=== PATIENT | female | born 1950 | race Caucasian/White ===

== ENCOUNTER 2017-01-10 15:42 | Inpatient (IN) | payer OTHER, MEDICAID ==
[~2017-01-10] VITALS: Ht 160 cm; Wt 114.5 kg
[2017-01-10] VITALS (9 sets, daily range): BP systolic 86–112; BP diastolic 53–87; PULSE 86–118; RESP 14–25; O2SAT 90–95
[~2017-01-10 15:42] MED LIST: ASPI-973 PO; ISOS30TA4 PO; LEVO50TA6 PO; LIP40 PO; LOSA50TA37 PO; METF1000 PO; METO50TA3 PO; NITR0.4T SL; SERT50TA9 PO; SPIR25TA3 PO
--- NOTE | 2017-01-10 16:23 | ED.REPORT ---
HPI-Chest Pain 40 and Over Date of Service Jan 10, 2017 ED Provider: Doc,Ed MD Kayy King is a pleasant 66 yo woman with history of Paroxysmal atrial tachycardia, congestive heart failure, COPD oxygen dependent 2 L, IDC, diabetes , hypothyroidism, presents to the [facility] emergency department after being called by triage nurse who is monitoring her AICD saying that she has been in a irregular rhythm for the last couple of days. Patient states she has noticed that her heartbeat has been irregular but has not caused her any discomfort. She says she has been in atrial fibrillation before but does not recall ever being on any blood thinners. She is not currently on any blood thinners. She states she has had abdominal pain for the last week, constant 8 out of 10 aching, no nausea/vomiting/diarrhea/anorexia, nothing makes it better or worse. She still has a gallbladder. She denies any increase in weight, says that her right lower extremity appears to be a little more swollen over the last couple of days compared to the left, denies any shortness of breath, lightheadedness, dizziness, headache, changes in vision, chest pain, recent illness, increase in her baseline shortness of breath or oxygen needs, no orthopnea or dysuria. No reported fever, chills, cold sweats Nursing Notes Stated Complaint: STOMACH PAIN,IRREGULAR HEARTBEAT Chief Complaint: Dysrhythmia/Cardiac Nursing Notes Reviewed: Yes Allergies: Coded Allergies: lisinopril (Verified Adverse Reaction, Intermediate, cough, 10/27/15) Scheduled Aspirin (Aspirin) 81 Mg Tablet 81 MG PO DAILY Atorvastatin (Lipitor) 40 Mg Tablet 40 MG PO HS Ipratropium Hamlin (Atrovent HFA) 200 Puff/12.9 Gm Inhaler 2 PUFFS INHALATION QID Isosorbide MN ER (Isosorbide MN ER) 30 Mg Tab.er.24h 30 MG PO QAM Levothyroxine (Levothyroxine) 50 Mcg Tablet 50 MCG PO DAILY Losartan Potassium (Losartan Potassium) 50 Mg Tablet 50 MG PO QAM Metformin (Glucophage) 1,000 Mg Tablet 1,000 MG PO BIDWM Metoprolol Tartrate (Metoprolol Tartrate) 50 Mg Tablet 50 MG PO BID Sertraline HCl (Sertraline) 50 Mg Tablet 50 MG PO DAILY Spironolactone (Spironolactone) 25 Mg Tablet 12.5 MG PO DAILY Scheduled PRN Albuterol Neb Soln (Albuterol Neb Soln) 0.63 Mg/3 Ml Vial.neb 3 ML INHALATION QID PRN PRN For Shortness of Breath Albuterol Sulfate (Ventolin HFA Inhaler) 200 Puff/18 Gm Inhaler 2 PUFFS INHALATION QID PRN PRN For Shortness of Breath Nitroglycerin SL (Nitrostat) 0.4 Mg Tab.subl 0.4 MG SL Q5MIN PRN PRN For Chest Pain General Time Seen by MD: 16:22 Chief Complaint Other (Arrythmia. ) Sudden in Onset?: Yes Similar Sx Previous: No Past Medical History Past Medical History Notes: Echo 05/18/14: EF 55-60%, rheumatic mitral valve with moderate stenosis (gradient 3.8mmHg) (has had EF as low as 30%) Past Medical History Idiopathic dilated cardiomyopathy History of paroxysmal atrial tachycardia History of congestive heart failure Hypothyroid Diabetes Past Surgical History Appendectomy Tonsillectomy Back surgery Cardiac cath with stent place in 2015 Family History Father- Unk Mother - CHF Arthritis, passed at 67. Smoking History Former Smoker (quit 2010) Social History Alcohol Use: "Social" Drug Use: THC (daily 1 bowl . ) Occupation Retired nurses aid. Review of Systems Complete sys rev & neg: except as marked. Physical Exam General: Sitting up in bed, no apparent distress HEENT: Normocephalic, atraumatic, EOMI grossly, poor dentition, mucous membranes moist, conjunctiva pink, neck is supple. No JVD. Cardiovascular: Irregularly irregular tachycardic, no clicks murmurs rubs, peripheral pulses 2/4 equal bilaterally Pulmonary: Bibasilar rales, expiratory wheeze to upper lung wagner. Abdominal: Soft to palpation, Conner sign positive, no rebound, no ash corley' s or ted sign. Extremities: RLE is mildly larger than L. Non tender. No cords. No rashes. Neuro: Neurologically grossly intact, strength is equal bilaterally upper and lower extremities. MSK: Able to move extremities on their own volition, strength 5 out of 5 equal bilaterally to upper and lower extremities. Initial Vital Signs Vital Signs (First) Date Time Temp Pulse Resp B/P Pulse Ox O2 Delivery O2 Flow Rate FiO2 01/10/17 15:59 36.2 107 24 92 4/12/17 16:16 86/69 Nasal Cannula 2 Initial VS: Reviewed Interpretation & Diagnostics Lab Results Interpretation Result Diagram: 01/10/17 1621 01/10/17 1621 Test 01/10/17 16:21 White Blood Count 11.5th/mm3 (3.8-10.1) Red Blood Count 4.63mil/mm3 (3.90-5.20) Hemoglobin 15.3g/dL (12.0-15.6) Hematocrit 46.9% (35.0-46.0) Mean Corpuscular Volume 101.3fL (81-100) Mean Corpuscular Hemoglobin 33.0pg (27.0-35.0) Mean Corpuscular Hemoglobin Concent 32.6% (32.0-37.0) Red Cell Distribution Width 14.5% (12.3-15.4) Platelet Count 215bil/L (150-400) Neutrophils (%) (Auto) 67.7% (40-74) Lymphocytes (%) (Auto) 25.1% (14-46) Monocytes (%) (Auto) 5.4% (4-12) Eosinophils (%) (Auto) 1.1% (0-5) Basophils (%) (Auto) 0.4% (0-3) D-Dimer 1.51mg/L FEU (<0.50) Sodium Level 136mEq/L (134-144) Potassium Level 4.8mEq/L (3.5-5.2) Chloride Level 98mEq/L (97-108) Carbon Dioxide Level 22mmol/L (18-29) Blood Urea Nitrogen 19mg/dL (8-27) Creatinine 1.04mg/dL (0.57-1.00) Estimat Glomerular Filtration Rate 76mL/min (>59) Glucose Level 108mg/dL (60-99) Calcium Level 8.9mg/dL (8.5-10.1) Magnesium Level 1.4mg/dL (1.6-2.6) Total Bilirubin 0.6mg/dL (0.0-1.2) Aspartate Amino Transf (AST/SGOT) 26U/L (0-50) Alanine Aminotransferase (ALT/SGPT) 38U/L (0-32) Alkaline Phosphatase 49U/L (25-165) Pro-B-Type Natriuretic Peptide 4350pg/mL (0-287) Total Protein 7.3g/dL (6.4-8.4) Albumin 4.0g/dL (3.4-5.0) Thyroid Stimulating Hormone (TSH) 4.490uIU/mL (0.450-4.500) ECG Interpretation ECG Interpretation: Irregularly irregular rhythm, rate 110 QTC 482, "Atrial fibrillation, RBBB and LPFB" X-Ray Chest Interpretation Chest Xray Interpretation: IMPRESSION: Suspect mild congestive heart failure. Dictated by: Travon John M.D. on 01/10/2017 at 16:37 US Focused Biliary IMPRESSION: 1. Cholelithiasis with wall thickening. Imaging findings are felt to be retail field representative of cholecystitis. Dictated by: Marisel Castillo M.D. on 01/10/2017 at 19:55 Re-Eval/Medical Decision Med Decision/Clinical Course Patient was evaluated for arrhythmia, and new onset abdominal pain. Evaluation of her heart showed her to be in atrial fibrillation with rapid ventricular rate , she was given a diltiazem dose IV, and started on diltiazem drip which brought her to rate in the upper 90s to low 100s. She remained in atrial fibrillation throughout her time in the emergency department. In regards to her abdominal pain findings were suspicious for cholecystitis, ultrasound showed thickened gallbladder wall 4.7 mm, and a nonobstructing gallstone. Patient was admitted for the above-mentioned conditions, surgery was consulted and said they would evaluate the patient in the morning. Consultation #1: Referral / Consult Name: Giorgi López MD Consulted With: Surgeon Pin Drafter Operator: Will see patient Consultation #2: Referral / Consult Name: Douglas Martinez MD Consulted With: Hospitalist Pin Drafter Operator: Will see patient, Accepts admit Counseled Regarding: Diagnosis, Lab results, Need for admission Discharge & Departure Primary Impression: Atrial fibrillation Atrial fibrillation type: paroxysmal Qualified Code: I48.0 - Paroxysmal atrial fibrillation Additional Impression: Cholecystitis Disposition: ADMITTED TO HOSPITAL Discharge Condition All VS Reviewed: Yes Condition: Stable Referrals: Poli Marvin MD (PCP) Attending Statement Seen and examined with Dr Mast on 01/10. agree with above. copies to: Poli Padron MD, Donald L MD Jan 10, 2017 16:22 Beni Mast DO Jan 10, 2017 16:41
[2017-01-10 16:28] LABS: BASOPHILS % (AUTO) 0.4 % (0-3); EOSINOPHILS % (AUTO) 1.1 % (0-5); MONOCYTES % (AUTO) 5.4 % (4-12); Mean Corpuscular Volume 101.3 fL (81-100); NEUTROPHILS % (AUTO) 67.7 % (40-74); Platelet Count 215 bil/L (150-400)
--- NOTE | 2017-01-10 16:46 | DRSVH ---
PROCEDURE: X-RAY CHEST ONE VIEW, PORTABLE ([id number]) INDICATIONS: Chest pain. TECHNIQUE: One view of the chest was acquired. COMPARISON: [facility], CR, XR CHEST 1VW (PORTABLE), 07/07/2015, 6:06. FINDINGS: Surgical changes and devices: There is a cardiac pacemaker/defibrillator. Lungs and pleura: There is common pulmonary vascularity. There are small pleural effusions. No pneumo thorax. Mediastinum: Mediastinal contours appear normal. Heart size is mildly increased. Bones and chest wall: No suspicious bony lesions. Overlying soft tissues appear unremarkable. IMPRESSION: Suspect mild congestive heart failure. Dictated by: Travon John M.D. on 01/10/2017 at 16:37 Approved by: Travon John M.D. on 01/10/2017 at 16:44
[2017-01-10] MEDS ORDERED: 0.9% Sodium Chloride 500 ML IV ONE (16:55)
[2017-01-10] MEDS ORDERED: Diltiazem 5 mg/mL 5 mL Inj IVPUSH ONE (16:55)
[2017-01-10] MEDS ORDERED: Diltiazem Inj 125 MG in 0.9% Sodium Chloride 100 ML, Pharmacy To Mix 1 EA IV SCH (16:55)
[2017-01-10 17:00] LABS: Magnesium 1.4 mg/dL (1.6-2.6)
[2017-01-10 17:01] LABS: TROPONIN T < 0.010 ug/L (0.0-0.011)
--- NOTE | 2017-01-10 19:59 | DRSVH ---
PROCEDURE: US ABDOMEN ([id number]) INDICATIONS: RUQ pain x1wk. Yeni? TECHNIQUE: Real-time scanning was performed of the abdominal and retroperitoneal organs, with image documentatio n. COMPARISON: None. FINDINGS: Liver: Liver is normal in size and demonstrates mild steatosis. Gallbladder: Oval areas of increased echogenicity are present within the gallbladder. The wall is thi ckened measuring 4.7 mm. No pericholecystic fluid is present. Biliary ducts: Intrahepatic bile ducts are non-dilated. Extrahepatic bile duct caliber measures 5.6 mm. Normal is 6-7 mm or less in diameter, or 10 mm or less post-cholecystectomy. Pancreas: Visualized portions of the pancreas are sonographically normal. Spleen: Spleen is normal in size and homogeneous in echotexture. Kidneys: Kidneys are normal in size and echotexture. Right kidney measures 11.6 cm long; left kidne y measures 10.1 cm long. No hydronephrosis or nephrolithiasis. No solid masses. Aorta: Visualized aorta is normal in caliber at less than 3 cm. Iliacs: Proximal common iliac arteries are normal in caliber at less than 2.5 cm. IVC: Intrahepatic inferior vena cava is patent. Miscellaneous: No free abdominal fluid. IMPRESSION: 1. Cholelithiasis with wall thickening. Imaging findings are felt to be authorization representative of cholecystit is. Dictated by: Marisel Castillo M.D. on 01/10/2017 at 19:55 Approved by: Marisel Castillo M.D. on 01/10/2017 at 19:57
[2017-01-10] MEDS ORDERED: ALBU0.63 INHALATION (20:46)
[2017-01-10] MEDS ORDERED: ATRINH INHALATION (20:46)
[2017-01-10] MEDS ORDERED: ALBU18HF INHALATION (20:46)
[2017-01-10] MEDS ORDERED: Alum-Mag Hydrox-Simeth 30 mL Suspension PO PRN (20:55)
[2017-01-10] MEDS ORDERED: Ondansetron 2 mg/mL 2 mL Inj IVPUSH PRN (20:55)
[2017-01-10] MEDS ORDERED: Polyethylene Glycol (PEG) 17 Gm Powder PO PRN (20:55)
[2017-01-10] MEDS ORDERED: Albuterol 2.5 mg/3 mL Inhalation Solution NEB PRN (22:55)
--- NOTE | 2017-01-10 23:00 | NUR ---
Admit Pt from the ED. On 3L of oxygen, Sp02 at 89%. Mild SOB on exertion. Pt complaining on abdominal pain. Admission complete. Pt able to be a SBA for safety to and from the [facility].
[2017-01-10] MEDS: Albuterol-Ipratropium 3 mL Inhalation Solution NEB PRN (23:23)
[2017-01-11] VITALS (11 sets, daily range): BP systolic 89–130; BP diastolic 63–96; PULSE 92–136; RESP 17–34; O2SAT 88–100
[2017-01-11] MEDS: Heparin 5,000 Unit/mL Inj SUBQ SCH ×3 (00:21→16:52)
[2017-01-11] MEDS ORDERED: Glucose 40% Oral Gel 15 Gm Tube PO PRN (00:30)
--- NOTE | 2017-01-11 00:35 | PCM.HPMED ---
Subjective Date of Service Jan 10, 2017 Primary Provider: Admitting Physician: Abhinav Florez MD Primary Care Physician: David Servin MD Attending Physician: Abhinav Florez MD Admit Status: From the Emergency Department Chief Complaint: Irregular heartbeat and abdominal pain History of Present Illness: 66 y/o female with a history of coronary artery disease s/p LAD stent in 2008, congestive heart failure (EF 55-60% on 12/17/15), atrial arrhythmias s/p AICD, diabetes and COPD on 2L chronic home oxygen who presented to the ED with the complaint of abdominal pain and an irregular heart beat. She states that she had recently been setup to monitor her AICD at home when the nurse evaluating her AICD advised the patient to go to the ED for an irregular rhythm. The patient states that her heart beat is always fast and that she is asymptomatic and has not been aware of her irregular rhythm nor has it caused her any chest discomfort. Patient reports arrhythmias in the past but denies being in atrial fibrillation and is not currently anticoagulated. Her main concern has been severe, 8/10 abdominal pain localized to the RUQ for the past week. She states that her pain is constant, not related to eating and radiates to her right side. She denies aggravating or alleviating factors, decreased appetite, fever, chills, nausea, vomiting, diarrhea or constipation. Of note, the patient states that she is followed by Dr. Tamez and reports increased right lower extremity swelling in the last few days. She denies orthopnea, chest pain or palpitations , dizziness, or headaches. She reports shortness of breath which is chronic and at baseline. In the ED: she was afebrile, hypotensive (BP 86/69), tachycardic (HR 107) and tachypneic (RR 24) with oxygen sats of 92% on 2L nasal cannula. Initial troponin was negative x1, pro BNP 4350, TSH 4.490 and D-dimer 1.51. ECG showing an irregularly irregular rhythm with a rate of 110 and RBBB. CXR suggestive for mild congestive heart failure. Abdominal ultrasound revealed cholelithiasis with wall thickening consistent with cholecystitis. Additional labs: WBC 11.5, H/H 15.3/46.9, plts 215 Na+ 136, K+ 4.8, Cl- 98, bicarb 22 BUN 19, Cr 1.04 Calcium 8.9 Mg 1.4 Glucose 108 total bili 0.6 AST/ALT 26/38 alk phos 49, She received 2g of IV ceftriaxone, 1L bolus of LR as well as 1L boluses of NS x2 and was started on a diltiazem drip. Review of Systems: A comprehensive review of systems was conducted with the patient and found to be negative except as above in the History of Present Illness. Allergies Coded Allergies: lisinopril (Verified Adverse Reaction, Intermediate, cough, 10/27/15) Home Medications Aspirin 81 MG PO DAILY Atorvastatin 40 MG PO DAILY Isosorbide MN ER 30 MG PO DAILY Levothyroxine 50 MCG PO DAILY Losartan Potassium 50 MG PO DAILY Metformin 1,000 MG PO BID Metoprolol Tartrate 50 MG PO BID Sertraline HCl 50 MG PO DAILY Spironolactone 12.5 MG PO DAILY Nitroglycerin SL 0.4 MG SL Q5MIN PRN For Chest Pain PMH History of systolic congestive heart failure due to 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 History of paroxysmal atrial tachycardia vs supraventricular tachycardia s/p ablation. CAD s/p LAD stent in 2008 COPD oxygen dependent 2 L Hypothyroidism Diabetes mellitus, type 2 Morbid obesity, BMI >40.0 Depression w/hx of two suicidal attempts Surgical History Appendectomy Tonsillectomy Back surgery Cardiac cath with stent place in 2015 Carpal tunnel surgery Family History Father- Unknown Mother - CHF Arthritis, at 67. Social History Occupation: Retired nurses aid. Hx Alcohol Use: Yes (OCCASIONALLY) Hx Substance Use: Yes (MARIJUANA DAILY) Hx Tobacco Use: Yes Smoking Status: Former Smoker (quit 2010) Living Arrangement: with Family Exam Vital Signs Vital Sign - Last Date Time Temp Pulse Resp B/P Pulse Ox O2 Delivery O2 Flow Rate FiO2 01/10/17 20:38 108 24 105/79 92 Nasal Cannula 2 01/10/17 18:44 36.8 Exam Gen: Obese female sitting upright in bed, appears uncomfortable but in no acute distress. Appropriately interactive c/o abdominal pain. HEENT: Normocephalic, atraumatic. PERRLA, no scleral icterus, oropharynx appears normal with moist mucosa. Neck: Nontender, no JVD, bruits or lymphadenopathy appreciated. Cardiac: Tachycardic with Irregularly irregular rhythm and no murmurs, rubs or gallops appreciated. Chest/Lungs: Symmetric chest rise, equal air entry bilaterally and normal respiratory effort, diminished lung sounds but grossly clear to auscultation bilaterally. Abd: soft, obese, nondistended, diffusely tender to palpation jerri RUQ, no masses or organomegaly appreciated. Ext: Warm, distal pulses equal/intact bilaterally, no cyanosis or edema. Mild, non-pitting edema to the ankle bilaterally R>L Skin: Normal temperature, turgor, and texture; no rash, or ulcerations. Neuro: CN II-XII grossly intact, no focal motor/sensory deficits.Normal muscle strength, tone, and bulk. No known gait impairment. Psych: Normal mood and affect. Alert and oriented to person, place, and time. Lab and Diagnostics Labs Laboratory Tests Test 01/10/17 16:21 White Blood Count 11.5th/mm3 (3.8-10.1) Red Blood Count 4.63mil/mm3 (3.90-5.20) Hemoglobin 15.3g/dL (12.0-15.6) Hematocrit 46.9% (35.0-46.0) Mean Corpuscular Volume 101.3fL (81-100) Mean Corpuscular Hemoglobin 33.0pg (27.0-35.0) Mean Corpuscular Hemoglobin Concent 32.6% (32.0-37.0) Red Cell Distribution Width 14.5% (12.3-15.4) Platelet Count 215bil/L (150-400) Neutrophils (%) (Auto) 67.7% (40-74) Lymphocytes (%) (Auto) 25.1% (14-46) Monocytes (%) (Auto) 5.4% (4-12) Eosinophils (%) (Auto) 1.1% (0-5) Basophils (%) (Auto) 0.4% (0-3) D-Dimer 1.51mg/L FEU (<0.50) Sodium Level 136mEq/L (134-144) Potassium Level 4.8mEq/L (3.5-5.2) Chloride Level 98mEq/L (97-108) Carbon Dioxide Level 22mmol/L (18-29) Blood Urea Nitrogen 19mg/dL (8-27) Creatinine 1.04mg/dL (0.57-1.00) Estimat Glomerular Filtration Rate 76mL/min (>59) Glucose Level 108mg/dL (60-99) Calcium Level 8.9mg/dL (8.5-10.1) Magnesium Level 1.4mg/dL (1.6-2.6) Total Bilirubin 0.6mg/dL (0.0-1.2) Aspartate Amino Transf (AST/SGOT) 26U/L (0-50) Alanine Aminotransferase (ALT/SGPT) 38U/L (0-32) Alkaline Phosphatase 49U/L (25-165) Troponin T < 0.010ug/L (0.0-0.011) Pro-B-Type Natriuretic Peptide 4350pg/mL (0-287) Total Protein 7.3g/dL (6.4-8.4) Albumin 4.0g/dL (3.4-5.0) Thyroid Stimulating Hormone (TSH) 4.490uIU/mL (0.450-4.500) Result Diagram: 01/10/17 1621 01/10/17 1621 X-Rays, CTs and MRIs X-RAY CHEST ONE VIEW, PORTABLE IMPRESSION: Suspect mild congestive heart failure. Dictated by: Travon John M.D. on 01/10/2017 at 16:37 Approved by: Travon John M.D. on 01/10/2017 at 16:44 US ABDOMEN IMPRESSION: 1. Cholelithiasis with wall thickening. Imaging findings are felt to be sales representative supervisor of cholecystitis. Dictated by: Marisel Castillo M.D. on 01/10/2017 at 19:55 Approved by: Marisel Castillo M.D. on 01/10/2017 at 19:57 Assessment & Plan 66 y/o female with a hx of CAD s/p LAD stent in 2008, CHF (most recent Echo on w/EF of 55-60%, severely dilated atria), atrial arrhythmias s/p AICD, diabetes and COPD on 2L chronic home O2 who presented to the ED with the complaint of abdominal pain and an irregular heart beat. Admitted for further management and evaluation of Afib w/RVR and probable cholecystitis. 1. Atrial fibrillation w/RVR, poa. Active. -hx of paroxysmal atrial tachycardia s/p ablation and CAD s/p LAD stent in 2008. Pt denies being in Afib before and not anticoagulated. -sent to ED after irregular rhythm noted on AICD monitoring. -ECG showing Afib w/rate of 110. -troponin negative x1, will trend -continue diltiazem drip, home aspirin/statin -hold home isosorbide, losartan, metoprolol, spironolactone. -Echo ordered 2. Probable acute cholecystitis, poa. Active. -patient c/o severe RUQ for past week and Abd US with findings consistent with cholecystitis. -WBC 11.5, total bili 0.6, AST/ALT 26/38, alk phos 49 -received 1L of LR, 2L of NS and 2g of IV ceftriaxone in the ED. -general surgery consulted from ED, will see in the morning -NPO after midnight -continue IV ceftriaxone -CMP in the morning 3. 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 Ongoing. -most recent ECHO (12/17/15) showing an EF 55-60%, severely enlarged left atrium -proBNP 4350 on admission and CXR suggestive for mild congestive heart failure -consider consult to Cardiology, pending Echo results, pt states she is followed by Dr. Tamez -Echo, ordered. 4. Diabetes mellitus, type 2 (chronic), poa. Presumed stable. -serum glucose on admission 108 -HbA1c pending -held Metformin -low dose correctional insulin ordered 5. COPD (chronic), poa. Stable -oxygen dependent, 2L home O2. Currently at baseline requirement. -does appear in acute exacerbation -continue supplemental oxygen -duonebs q4h prn, albuterol q4 prn 6. Hypothyroidism (chronic), poa. Presumed stable -continue home levothyroxine 7. Hx of depression (chronic), poa. Presumed stable. -reportedly two prior suicide attempts in the past -continue home sertraline CODE STATUS: FULL FEN: Heart healthy/consistent carb; NPO after midnight GI Prophylaxis: not indicated DVT Prophylaxis: Sub-q Heparin, 5,000units Q8h PRN: Acetaminophen-fever/headache/mild/moderate pain Antiemetics, as needed Bowel regimen, as needed. Disposition: Patient admitted under inpatient status with expected length of stay > 2 midnights for severity of present symptoms, complexities of treatment plan and risk for adverse event. Pain Evaluation: Adequate Pain Control GI Prophylaxis: Not indicated VTE Prophylaxis Indicated: Meets Criteria for Anticoag Therapy VTE Prophylaxis: Sub-Q Heparin (Unfractionated) Resuscitation Status: CPR: Attempt Resuscitation Attending Statement The patient was seen and examined together with Dr. Singer on 01/10 and I agree with the history, exam and plan as outlined in the note above. Viviana Singer DO Jan 10, 2017 20:53 Abhinav Florez MD Jan 11, 2017 02:13
[2017-01-11 04:53] LABS: BASOPHILS % (AUTO) 0.6 % (0-3); EOSINOPHILS % (AUTO) 1.5 % (0-5); MONOCYTES % (AUTO) 7.8 % (4-12); Mean Corpuscular Hemoglobin 33.2 pg (27.0-35.0); Mean Corpuscular Volume 101.4 fL (81-100); NEUTROPHILS % (AUTO) 56.6 % (40-74); Platelet Count 175 bil/L (150-400)
[2017-01-11] MEDS: Albuterol-Ipratropium 3 mL Inhalation Solution NEB PRN ×2 (05:06→09:18)
[2017-01-11 05:32] LABS: TROPONIN T 0.01 ug/L (0.0-0.011)
[2017-01-11] MEDS: Insulin LISPRO 300 Unit/3 mL Inj SUBQ SCH ×4 (08:00→20:03)
[2017-01-11] MEDS: HYDROmorphone 1 mg/mL Inj IVPUSH PRN ×3 (08:09→19:24)
--- NOTE | 2017-01-11 08:21 | PCM.CONSUR ---
Subjective Date of Service: Jan 11, 2017 History of Present Illness 66 y/o female with a history of coronary artery disease s/p LAD stent in 2008, congestive heart failure (EF 55-60% on 12/17/15), atrial arrhythmias s/p AICD, diabetes and COPD on 2L chronic home oxygen who presented to the ED with the complaint of abdominal pain and an irregular heart beat. Her main concern has been severe, 8/10 abdominal pain localized to the RUQ for the past week. Patient had RUQ pain for one week which subsided and again returned on 07/17. She denies nausea, vomiting, diarrhea, constipation. She states that her RUQ pain was not associated with PO intake.The pain seems constant and is aggravated by movement and palpation. She remains afebrile and normal white count. Abdominal ultrasound revealed cholelithiasis with wall thickening consistent with cholecystitis. Reason for Consultation RUQ pain and US showing cholelithiasis. Allergy Allergies: Coded Allergies: lisinopril (Verified Adverse Reaction, Intermediate, cough, 10/27/15) Medications Hypertension Medication: Yes Home Meds Incl Beta Blockers: Yes Albuterol Neb Soln (Albuterol Neb Soln) 0.63 Mg/3 Ml Vial.neb 3 ML INHALATION QID PRN PRN For Shortness of Breath (Reported) Last Taken: Unknown Dose on 01/10/17 Albuterol Sulfate (Ventolin HFA Inhaler ) 200 Puff/18 Gm Inhaler 2 PUFFS INHALATION QID PRN PRN For Shortness of Breath (Reported) Last Taken: Unknown Dose on 01/10/17 Aspirin (Aspirin) 81 Mg Tablet 81 MG PO DAILY (Reported) Last Taken: Unknown Dose on 01/10/17 0800 Atorvastatin (Lipitor) 40 Mg Tablet 40 MG PO HS (Reported) Last Taken: Unknown Dose on 01/09/17 Cephalexin (Cephalexin) 500 Mg Capsule 500 MG PO QID Prescribed by: BAUTISTA CARTER MD Furosemide (Furosemide) 20 Mg Tab 20 MG PO DAILY Prescribed by: BAUTISTA CARTER MD Ipratropium [place] (Atrovent HFA) 200 Puff/12.9 Gm Inhaler 2 PUFFS INHALATION QID (Reported) Last Taken: Unknown Dose on 01/10/17 Isosorbide MN ER (Isosorbide MN ER) 30 Mg Tab.er.24h 30 MG PO QAM (Reported) Last Taken: Unknown Dose on 01/10/17 08 Levothyroxine (Levothyroxine) 50 Mcg Tablet 50 MCG PO DAILY (Reported) Last Taken: Unknown Dose on 01/10/17 08 Losartan Potassium (Losartan Potassium) 50 Mg Tablet 50 MG PO QAM (Reported) Last Taken: Unknown Dose on 01/10/17 08 Metformin (Glucophage) 1,000 Mg Tablet 1,000 MG PO BIDWM (Reported) Last Taken: Unknown Dose on 01/10/17799 Metoprolol Tartrate (Metoprolol Tartrate) 50 Mg Tablet 50 MG PO BID (Reported) Last Taken: Unknown Dose on 01/10/17799 Nitroglycerin SL (Nitrostat) 0.4 Mg Tab.subl 0.4 MG SL Q5MIN PRN PRN For Chest Pain (Reported) Last Taken: Unknown Dose on Unknown Date & Time Sertraline HCl (Sertraline) 50 Mg Tablet 50 MG PO DAILY Prescribed by: SAVANNAH ARMANDO DO Last Taken: Unknown Dose on 01/10/17799 Spironolactone (Spironolactone) 25 Mg Tablet 12.5 MG PO DAILY (Reported) Last Taken: Unknown Dose on 01/10/17 0800 Past Surgical History Surgeries: Yes (PACEMAKER, APPENDECTOMY, TONSILLECTOMY, PARTIAL L3/L4 FUSION) Patient/Family Past Surgical: Denies:: Anesthesia Reactions, Blood Transfuse Reaction, Blood Transfusions Social History Occupation: Retired nurses aid. Hx Alcohol Use: Yes (OCCASIONALLY) Hx Substance Use: Yes (MARIJUANA DAILY) Hx Tobacco Use: Yes PMH HEENT History History of ENT Problems?: No HEENT History: Denies:: Cataracts Dysphagia Glaucoma Sinus Problem Cardiovascular History History of Heart Problems?: Yes Cardiovascular History: Positive for:: Cardiac Surgery (AICD pacemaker, PCI of LAD) Chest Pain Congestive Heart Failure Edema (LE) Heart Murmur Hypertension Irregular Heartbeat (S/P ablation in 2008) Pacemaker (AICD) Denies:: Thrombophlebitis Respiratory History of Respiratory Problem: Yes Respiratory History: Positive for:: Dyspnea (With activity (worsen since last few months)) Denies:: Asthma COPD Chest Surgery Emphysema Hemoptysis Pneumonia Tuberculosis Neurological History Hx Neurologic Problems?: Yes Neurological History: Denies:: Alzheimer's Disease CVA Dementia Dizziness Headaches Parkinson's Disease Seizures Gastrointestinal History HX of GI Problems?: Yes Gastrointestinal History: Positive for:: Heartburn (Realated to aspirin) Denies:: Diverticulitis Gastrointestinal Bleeding Hepatitis Hiatal Hernia Genitourinary History Hx of Gu Problems?: Yes Genitourinary History: Positive for: Urinary Tract Infection (A few times during the last few years) Denies: HX of Hemodialysis Kidney Stones Female/Male History Reproductive History Female: Denies: Currently ? Endometriosis Pelvic Inflammatory DX Problems with Breasts? Musculoskeletal History Hx Musculoskeletal Problems?: Yes Musculoskeletal History: Positive for:: Back Injury (Back L3-L4 partial fusion ) Denies:: Joint Replacement Musculoskeletal Trauma Psycho Social History Hx of Psycho/Social Problems?: Yes Psycho Social History: Positive for:: Anxiety Hx Depression Suicide Attempt ( OD) Denies:: Bipolar Disorder Other History Hx Any Other Health Problems?: Yes Other History: Positive for:: Cancer (Cervical cancer in the 80-90s) Hospitalization Thyroid Disease Denies:: Endocrine Disease Diabetes: YesBedside Blood Glucose: 108 Social History Hx Alcohol Use: Yes (OCCASIONALLY)Hx Substance Use: Yes (MARIJUANA DAILY)Hx Tobacco Use: Yes Smoking Status: Former Smoker (quit 2010) Living Arrangement: with Family Family History PMH Family Member: Father (CHF) Mother (CHF, diabetes) PMH Family Diagnosis: Cardiac Diabetes Objective Exam Objective comprehensive ROS is negative except those listed in the H&P. Vital Signs & I/O Vital Sign- Last 8 Hours Date Time Temp Pulse Resp B/P Pulse Ox O2 Delivery O2 Flow Rate FiO2 01/11/17 05:19 98 01/11/17 05:06 117 22 94 Nasal Cannula 4.00 01/11/17 03:22 92 34 100/63 100 Nasal Cannula 4.00 01/11/17 00:11 36.4 102 20 112/94 93 Nasal Cannula 4.00 Intake and Output- Last 8 Hour 01/11/17 Cumulative From/Thru 07:00 01/10/17 15:59 - 01/11/17 06:22 Intake Total 300 ml 800 ml Output Total 900 ml 900 ml Balance -600 ml -100 ml Intake Oral 300 ml 300 ml IV Total 500 ml Output Urine Total 900 ml 900 ml Lab & Micro Results Laboratory Tests Test 01/10/17 16:21 01/10/17 22:15 4/13/17 04:34 White Blood Count 11.5th/mm3 (3.8-10.1) 10.9th/mm3 (3.8-10.1) Red Blood Count 4.63mil/mm3 (3.90-5.20) 4.19mil/mm3 (3.90-5.20) Hemoglobin 15.3g/dL (12.0-15.6) 13.9g/dL (12.0-15.6) Hematocrit 46.9% (35.0-46.0) 42.5% (35.0-46.0) Mean Corpuscular Volume 101.3fL (81-100) 101.4fL (81-100) Mean Corpuscular Hemoglobin 33.0pg (27.0-35.0) 33.2pg (27.0-35.0) Mean Corpuscular Hemoglobin Concent 32.6% (32.0-37.0) 32.7% (32.0-37.0) Red Cell Distribution Width 14.5% (12.3-15.4) 14.2% (12.3-15.4) Platelet Count 215bil/L (150-400) 175bil/L (150-400) Neutrophils (%) (Auto) 67.7% (40-74) 56.6% (40-74) Lymphocytes (%) (Auto) 25.1% (14-46) 33.3% (14-46) Monocytes (%) (Auto) 5.4% (4-12) 7.8% (4-12) Eosinophils (%) (Auto) 1.1% (0-5) 1.5% (0-5) Basophils (%) (Auto) 0.4% (0-3) 0.6% (0-3) D-Dimer 1.51mg/L FEU (<0.50) Sodium Level 136mEq/L (134-144) 139mEq/L (134-144) Potassium Level 4.8mEq/L (3.5-5.2) 4.5mEq/L (3.5-5.2) Chloride Level 98mEq/L (97-108) 104mEq/L (97-108) Carbon Dioxide Level 22mmol/L (18-29) 20mmol/L (18-29) Blood Urea Nitrogen 19mg/dL (8-27) 17mg/dL (8-27) Creatinine 1.04mg/dL (0.57-1.00) 0.85mg/dL (0.57-1.00) Estimat Glomerular Filtration Rate 76mL/min (>59) 96mL/min (>59) Glucose Level 108mg/dL (60-99) 93mg/dL (60-99) Calcium Level 8.9mg/dL (8.5-10.1) 8.6mg/dL (8.5-10.1) Magnesium Level 1.4mg/dL (1.6-2.6) Total Bilirubin 0.6mg/dL (0.0-1.2) 0.6mg/dL (0.0-1.2) Aspartate Amino Transf (AST/SGOT) 26U/L (0-50) 19U/L (0-50) Alanine Aminotransferase (ALT/SGPT) 38U/L (0-32) 29U/L (0-32) Alkaline Phosphatase 49U/L (25-165) 43U/L (25-165) Troponin T < 0.010ug/L (0.0-0.011) 0.010ug/L (0.0-0.011) 0.010ug/L (0.0-0.011) Pro-B-Type Natriuretic Peptide 4350pg/mL (0-287) Total Protein 7.3g/dL (6.4-8.4) 6.2g/dL (6.4-8.4) Albumin 4.0g/dL (3.4-5.0) 3.6g/dL (3.4-5.0) Thyroid Stimulating Hormone (TSH) 4.490uIU/mL (0.450-4.500) Result Diagram: 01/11/1743301/11/17433 Review of Systems: Constitutional: Negative, except as otherwise mentioned in the history above. Ophthalmologic: Negative, except as otherwise mentioned in the history above. Cardiovascular: Negative, except as otherwise mentioned in the history above. Respiratory: Negative, except as otherwise mentioned in the history above. Gastrointestinal: Negative, except as otherwise mentioned in the history above. Genitourinary: Negative, except as otherwise mentioned in the history above. Musculoskeletal: Negative, except as otherwise mentioned in the history above. Neurological: Negative, except as otherwise mentioned in the history above. Psychiatric: Negative, except as otherwise mentioned in the history above. Hematologic/Lymphatic: Negative, except as otherwise mentioned in the history above. Allergic/Immunologic: Negative, except as otherwise mentioned in the history above. H&P Surgical Exam Exam Additional Information Gen: Obese female lying in bed, appears uncomfortable but in no acute distress. Appropriately interactive c/o abdominal pain. HEENT: Normocephalic, atraumatic. PERRLA, no scleral icterus, oropharynx appears normal with moist mucosa. Neck: Nontender, no JVD, bruits or lymphadenopathy appreciated. Cardiac: Tachycardic with Irregularly irregular rhythm and no murmurs, rubs or gallops appreciated. Chest/Lungs: Symmetric chest rise, Abd: soft, obese, nondistended, diffusely tender to palpation RUQ, no masses or organomegaly appreciated. Ext: Warm, distal pulses equal/intact bilaterally, no cyanosis or edema. Mild, non-pitting edema to the ankle bilaterally R>L Skin: Normal temperature, turgor, and texture; no rash, or ulcerations. Neuro: CN II-XII grossly intact, no focal motor/sensory deficits.Normal muscle strength, tone, and bulk. No known gait impairment. Psych: Normal mood and affect. Alert and oriented to person, place, and time. Assessment & Plan Assessment Cholelithiasis on US and RUQ pain. VTE Prophylaxis: Sub-Q Heparin (Unfractionated) Plan: Continue fluids, pain management, and antibiotics per medicine team. She is not a surgical candidate due to BMI of 62.5. Recommend transfer to a tertiary facility for HIDA and surgical intervention if necessary. Surgery team will sign off. Resuscitation Status: CPR: Attempt Resuscitation Attending Statement: I personally interviewed and examined the patient. Discussed case with hospitalist and anesthesiologist re: her BMI. ORA HALL DO Jan 11, 2017 08:08 Wilfred Smith MD Jan 14, 2017 16:51
--- NOTE | 2017-01-11 08:26 | PCM.PNMED ---
Subjective Date of Service Jan 11, 2017 Subjective she is having ongoing right upper quadrant pain. The pain does not radiate, nor is a colicky. No nausea or emesis. She is hungry. The pain increases with palpation. She also has palpitations. No dyspnea or chest pain. No recent diarrhea. No overnight events. Exam Vital Signs Vital Sign - Last Date Time Temp Pulse Resp B/P Pulse Ox O2 Delivery O2 Flow Rate FiO2 01/11/17 05:19 98 01/11/17 05:06 22 94 Nasal Cannula 4.00 01/11/17 03:22 100/63 01/11/17 00:11 36.4 Intake and Output 01/10/17 01/10/17 01/11/17 Cumulative From/Thru 15:00 23:00 07:00 01/10/17 15:59 - 01/11/17 06:22 Intake Total 500 ml 300 ml 800 ml Output Total 900 ml 900 ml Balance 500 ml -600 ml -100 ml Intake Oral 300 ml 300 ml IV Total 500 ml 500 ml Output Urine Total 900 ml 900 ml Exam Alert and oriented 3, no distress. Fluent speech Anicteric sclera. Lungs are clear with normal rate and effort Heart is regular without murmur gallop or rub Abdomen soft nontender, flat. There is right upper quadrant tenderness without guarding or rebound. Extremities are free of edema. Skin is free of rash or lesions. IVs and Medications Medications Reviewed: Medications were reviewed in detail Lab and Diagnostics Result Diagram: 01/11/17 0434 01/11/17 0434 X-Rays, CTs and MRIs X-RAY CHEST ONE VIEW, PORTABLE IMPRESSION: Suspect mild congestive heart failure. Dictated by: Travon John M.D. on 01/10/2017 at 16:37 Approved by: Travon John M.D. on 01/10/2017 at 16:44 US ABDOMEN IMPRESSION: 1. Cholelithiasis with wall thickening. Imaging findings are felt to be community representative of cholecystitis. Dictated by: Marisel Castillo M.D. on 01/10/2017 at 19:55 Approved by: Marisel Castillo M.D. on 01/10/2017 at 19:57 Assessment & Plan 66 y/o female with a hx of CAD s/p LAD stent in 2008, CHF (most recent Echo on w/EF of 55-60%, severely dilated atria), atrial arrhythmias s/p AICD, diabetes and COPD on 2L chronic home O2 who presented to the ED with the complaint of abdominal pain and an irregular heart beat. Admitted for further management and evaluation of Afib w/RVR and probable cholecystitis. 1. Atrial fibrillation w/RVR, poa. Active. -hx of paroxysmal atrial tachycardia s/p ablation and CAD s/p LAD stent in 2008. Pt denies being in Afib before and not anticoagulated. -sent to ED after irregular rhythm noted on AICD monitoring. -ECG showing Afib w/rate of 110. -troponin negative x1, will trend -continue diltiazem drip, home aspirin/statin -hold home isosorbide, losartan, metoprolol, spironolactone. -Echo ordered Plan is to maintain her on a diltiazem drip, pending transfer to [facility] for a probable urgent cholecystectomy. 2. Probable acute cholecystitis, poa. Active. -patient c/o severe RUQ for past week and Abd US with findings consistent with cholecystitis. -WBC 11.5, total bili 0.6, AST/ALT 26/38, alk phos 49 -received 1L of LR, 2L of NS and 2g of IV ceftriaxone in the ED. -general surgery consulted from ED, will see in the morning -NPO after midnight -continue IV ceftriaxone -CMP in the morning Our surgeons reviewed the case and given her bariatric parameters she is not a candidate for cholecystectomy at this institution. We will work towards a transfer. 3. 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 Ongoing. -most recent ECHO (12/17/15) showing an EF 55-60%, severely enlarged left atrium -proBNP 4350 on admission and CXR suggestive for mild congestive heart failure -consider consult to Cardiology, pending Echo results, pt states she is followed by Dr. Tamez -Echo, ordered. This appears to be clinically stable. 4. Diabetes mellitus, type 2 (chronic), poa. Presumed stable. -serum glucose on admission 108 -HbA1c pending -held Metformin -low dose correctional insulin ordered Plan is as above and without change 5. COPD (chronic), poa. Stable -oxygen dependent, 2L home O2. Currently at baseline requirement. -does appear in acute exacerbation -continue supplemental oxygen -duonebs q4h prn, albuterol q4 prn 6. Hypothyroidism (chronic), poa. Presumed stable -continue home levothyroxine 7. Hx of depression (chronic), poa. Presumed stable. -reportedly two prior suicide attempts in the past -continue home sertraline CODE STATUS: FULL FEN: Heart healthy/consistent carb; NPO after midnight GI Prophylaxis: not indicated DVT Prophylaxis: Sub-q Heparin, 5,000units Q8h PRN: Acetaminophen-fever/headache/mild/moderate pain Antiemetics, as needed Bowel regimen, as needed. Disposition: Inpatient status, pending transfer likely to [facility]. GI Prophylaxis: Not indicated VTE Prophylaxis: Sub-Q Heparin (Unfractionated) Resuscitation Status: CPR: Attempt Resuscitation Virgil Lawrence MD Jan 11, 2017 08:26
[2017-01-11] MEDS ORDERED: Magnesium Sulf 2 Gm/50mL Water 2 GM in IV Premix 1 EACH IV ONE (08:30)
--- NOTE | 2017-01-11 08:50 | DRSVH ---
PROCEDURE: CT ANGIO CHEST PULMONARY EMBOLISM ([id number]) INDICATIONS: Tachycardia, Increased O2 demand, Elevated Ddimer TECHNIQUE: After the administration of intravenous contrast, 2 mm thick sections acquired from the pulmonary api caprice to the posterior costophrenic angles. 3-dimensional maximum intensity projection (MIP) coronal a nd sagittal reformats were then acquired through the thorax. For radiation dose reduction, the follo wing was used: automated exposure control, adjustment of mA and/or kV according to patient size. COMPARISON: None. FINDINGS: Image quality: There is mild motion artifact limiting evaluation of distal branches. Pulmonary arteries: Pulmonary arteries demonstrate no intraluminal filling defects to suggest centra l pulmonary embolism. Evaluation of distal subsegmental branches is limited due to motion artifact. There is enlargement of the pulmonary arteries, with the main pulmonary artery measuring up to 3.8 c m suggesting pulmonary arterial hypertension. Lungs and pleura: There are small bilateral pleural effusions with associated mild compressive atele ctasis. There are indistinct ground glass opacities with multiple thickening compatible with mild pu lmonary edema. There are centrilobular emphysematous changes bilaterally. There is an irregular per ihilar nodule in the right lower lobe measuring up to 1.6 cm with spiculated margins. The trachea an d central airways are patent. Mediastinum: Heart size is normal, without pericardial effusion. There is a left chest wall AICD wi th the lead extending into the right ventricle. There is suggestion of a coronary stent in the left anterior descending coronary artery. There multiple enlarged mediastinal lymph nodes including a rep resentative node approximately 1.3 cm in short axis. Thoracic aorta is normal in caliber and enhance ment. Esophagus is normal in caliber, without hiatal hernia. Bones and chest wall: No suspicious bony lesions. There are old healed posterior left rib fractures . Thyroid gland is partially visualized. No axillary or supraclavicular adenopathy. Abdomen: Visualized upper abdomen demonstrates mild reflux of contrast into the hepatic veins sugges ting elevated right heart filling pressures. IMPRESSION: 1. No evidence of central pulmonary embolism. There is enlargement of the pulmonary arteries sugges ting pulmonary arterial hypertension. 2. Spiculated perihilar right lower lobe nodule is suspicious for a neoplasm although the differenti al also includes atypical infection. Recommend correlation clinically and further evaluation with a CT or short term followup CT in 4-6 weeks. 3. Mediastinal lymphadenopathy is nonspecific but may reflect metastatic disease. Recommend further evaluation with PET CT or short term followup in 4-6 weeks if there is clinical suspicion for an inf ectious or inflammatory process. 4. Cardiomegaly with small pleural effusions and mild pulmonary edema compatible with congestive hea rt failure. 5. Centrilobular emphysematous changes. Dictated by: David Flores M.D. on 01/11/2017 at 8:33 Approved by: David Flores M.D. on 01/11/2017 at 8:49
[2017-01-11] MEDS ORDERED: Furosemide 10 mg/mL 2 mL Inj IVPUSH ONE (10:45)
[2017-01-11] MEDS: Piperacillin-Tazo 3.375 Gm Inj 3.375 GM in Dextrose 5% Minibag Plus 50 ML IV SCH ×2 (11:13→19:14)
--- NOTE | 2017-01-11 11:48 | NUR ---
Social Work: Screen Data/Assessment: Per EMR review, pt is a 66 year old female admitted for AFIB with RVR, Cholocystitis. Pt is [place] Blind/Disabled. PCP is David Servin MD. NOK is souleymane Andrew. Advanced directives not complete- information provided to pt. Readmit score not entered at this time. Pt discussed in am rounds. Pt is not a surgical candidate at [facility] due to her high BMI. Pt is being transferred to [facility] for a higher level of care. MD requested RESIDENTIAL WORKER contact [facility] Transfer [facility] ([phone]) to verify pt's insurance. RESIDENTIAL WORKER provided pt's insurance info to [facility]. They are still reviewing and will call MD back with final decision. Pt lives in [place] and is I at baseline. Pt uses 2L o2 at baseline. Pt is currently on 6L o2. Plan: Anticipate pt to be transferred to [facility] once a bed is available. RESIDENTIAL WORKER to assist as requested by clinical team. LISANDRA Ferraro
--- NOTE | 2017-01-11 14:51 | DRSVH ---
PROCEDURE: X-RAY CHEST ONE VIEW, PORTABLE ([id number]) INDICATIONS: dyspnea TECHNIQUE: One view of the chest was acquired. COMPARISON: [facility], CR, XR CHEST 1VW (PORTABLE), 01/10/2017, 16:06. FINDINGS: Surgical changes and devices: There is a cardiac pacemaker/defibrillator. Lungs and pleura: There is increased pulmonary vascularity. There are small pleural effusions. No pne umothorax. Mediastinum: Mediastinal contours appear normal. Heart size is mildly increased. Bones and chest wall: No suspicious bony lesions. Overlying soft tissues appear unremarkable. IMPRESSION: Mild CHF similar to prior examination. Dictated by: Jaime Solano RRA Interpreted: Judy Chavira MD on 01/11/2017 at 14:50 Transcribed by: ANA on 01/11/2017 at 14:50 Approved by: Judy Chavira MD, PhD on 01/11/2017 at 16:45
[2017-01-11] MEDS: Diltiazem Inj 125 MG in 0.9% Sodium Chloride 100 ML, Pharmacy To Mix 1 EA IV SCH (17:56)
--- NOTE | 2017-01-11 17:56 | NUR ---
Cardizem Drip Noted that her heart rate had been trending up slightly during the day to 110s and 120s. Increased her Cardizem drip to 10 mg/hour at 1756. Care continues.
--- NOTE | 2017-01-11 19:38 | NUR ---
Pain/Possible Transfer/Communication 0800 - Spoke with Dr. Lawrence about her not being given pain medication all night long even though the warehouse shift supervisor nurse had requested it multiple times of the night resident. He ordered 1 mg of Dilaudid IV. Gave it to her for abdominal pain of 8/10. She had been asking to eat, but he said she needed to remain NPO as she would likely need to transfer to [facility] for surgery as it could not be provided here. Gave her the Dilaudid and passed the diet info along to her. The Dilaudid took away her pain upon reassessment. 09 - Informed Dr. Lawrence in morning multi-disciplinary rounds that her oxygen had to be increased to 6L via oxymask and that she was still sating 88% even after a nebulizer. Her lungs sounded fairly clear upon auscultation except for some crackles in her bases. Dr. Lawrence ordered a stat chest x-ray which showed some CHF. IV Lasix was ordered which once given improved her saturation even though by that point she had needed to be increased to 10L. 1105 - Noted that Zosyn had been ordered, but that is was incompatible with her Cardizem drip and she only had one IV. Spoke to the Pharmacist Cm Crews who said the Zosyn could be given over 15 minutes while the Cardizem was temporarily stopped. He put the order in and the Zosyn was given. Her rhythm did not change while she was off the Cardizem drip. 1405 - Spoke with Dr. Lawrence about the transfer, but unfortunately [facility] did not have any beds so she would need to stay for the night and be NPO except for sips of water. He spoke to her about this. Care continues.
--- NOTE | 2017-01-11 20:20 | DRSVH ---
[facility] [address] [place] [address] Echocardiogram Report Name: FERNY DEAN JStudy Date: 01/11/2017 Height: 63 in Hospital Exam Location: [facility] Weight: 353 lb Gender: Other BSA: 2.5 m2 : 1950 Age: 66 yrs BP: 100/63 mmHg Reason For Study: Atrial fibrillation RVR Ordering Physician: HOSPITALIST [facility] Performed By: Kian Garcia Referring Physician: KUMAR KRUSE Interpretation Summary Left ventricular wall thickness is mildly increased. The left ventricle is mildly dilated. The ejection fraction is estimated to be 50-55%. The right ventricle is mild to moderately dilated. Right ventricular systolic function is moderately reduced. There is a pacemaker lead in the right ventricle. Rheumatic mitral stenosis. The mitral valve mean gradient is 8 mmHg. There is mild mitral regurgitation. The aortic valve is moderately calcified. There is no aortic valve stenosis. There is moderate aortic regurgitation. The right ventricular systolic pressure is estimated at 53 mmHg assuming a right atrial pressure of 15 mm Hg. There is no pericardial effusion. The left atrium is severely dilated. The patient was in atrial fibrillation with heart rates between 94-134 bpm during the exam. Compared to the previous study on 12/17/2015, the atrial fibrillation is new, LV function is not as brisk, RV systolic function is reduced, right sided pressures are higher and the degree of mitral stenosis has progressed. Procedure: A two-dimensional transthoracic echocardiogram with color flow and Doppler was performed. The study quality was technically adequate. The patient was in atrial fibrillation with heart rates between 94-134 bpm during the exam. Left Ventricle: Left ventricular wall thickness is mildly increased. The left ventricle is mildly dilated. The ejection fraction is estimated to be 50 -55%. Right Ventricle: The right ventricle is mild to moderately dilated. There is a pacemaker lead in the right ventricle. Right ventricular systolic function is moderately reduced. Atria: The left atrium is severely dilated. The right atrium is moderately dilated. There is no Doppler evidence for an atrial septal defect. Mitral Valve: Rheumatic mitral stenosis. The mitral valve mean gradient is 8 mmHg. There is mild mitral regurgitation. Aortic Valve: The aortic valve is not well visualized. The aortic valve is moderately calcified. The peak aortic velocity is 1.8 m/sec. The aortic valve mean gradient is 8 mmHg. There is no aortic valve stenosis. There is moderate aortic regurgitation. Tricuspid Valve: The tricuspid valve is not well visualized, but is grossly normal. There is mild tricuspid regurgitation. The right ventricular systolic pressure is estimated at 53 mmHg assuming a right atrial pressure of 15 mm Hg. Pulmonic Valve: The pulmonic valve is not well seen, but is grossly normal. There is no pulmonic valvular regurgitation. Great Vessels: The aortic root is normal size. The ascending aorta is mildly enlarged. The pulmonary artery is normal size. The IVC is dilated (diameter is greater than 2.1 cm) and it collapses less than 50% with a sniff. This suggests a high right atrial pressure of 15 mm Hg. Pericardium/ Pleura There is no pericardial effusion. There is no pleural effusion. MMode/2D Measurements & Calculations LVIDd: 5.3 cm RA long axis LVOT diam LVIDs: 4.6 cm LA A2 area: 33.2 cm FS: 14.1 % LA A4 area: 38.1 cm RA area Ao root diam EPSS: 0.88 cm LA length (vol): 7.2 cm IVSd: 1.1 cm LA vol: 149.1 ml : 27.6 cm asc Aorta LVPWd: 1.1 cm LA vol index RA vol: 96.6 mlDiam: 3.6 cm RA : 39.3 mm2 IVC diam: 3.4 cm LV mc. diameter/BSA LV sys. diameter/BSA RVD1 (basal) RVD2 (mid) (cm/m^2): 2.2 (cm/m^2): 1.9 : 3.4 cm TAPSE: 1.0 cm Doppler Measurements & Calculations Ao V2 max MV E max robbin Med Peak E' Robbin TR max robbin : 182.6 cm/sec : 157.9 cm/sec : 309.0 cm/sec Ao max PG E/E' med: 30.0 TR max PG : 13.9 mmHg MVA(VTI): 1.3 cm2 Lat Peak E' Robbin : 38.2 mmHg Ao mean PG PA V2 max E/E' lat: 23.1 : 73.4 cm/sec LVOT Max Robbin E/e' average PA mean PG : 95.1 cm/sec : 0.94 mmHg SARITA(I,D): 2.3 cm sev ratio: 0.54 AI P1/2t : 477.2 msec AI dec slope : 259.5 cm/s2c MV V2 mean MV P1/2t max robbin Ao V2 mean LV V1 max PG : 134.0 cm/sec : 158.1 cm/sec : 127.5 cm/sec MV mean PG Ao V2 VTI: 25.4 cm LV V1 VTI SARITA(V,D): 2.2 cm2 : 13.7 cm MV V2 VTI: 45.4 cm MV dec time : 0.46 sec PA V2 mean SARITA indexed to BSA : 44.6 cm/sec (cm^2/m^2): 0.92 PA pr(Accel) : 27.1 mmHg Reading Physician:08:19 PM
--- NOTE | 2017-01-11 23:35 | NUR ---
O2/PAIN/HR Pt has been comfortable since 1 mg Dilaudid was given @ 1924. Pt is currently on 10L Oxy-mask sating low 's. Pt currently NPO status awaiting her transfer to [place] in the AM. Pt on dilt gtt @ 10mg/hr, HR currently in the 90's. Uneventful night, vitals stable, no other issues noted at this time.
[2017-01-12] VITALS (13 sets, daily range): BP systolic 94–122; BP diastolic 70–99; PULSE 97–121; RESP 14–24; O2SAT 87–92
[2017-01-12] MEDS: Piperacillin-Tazo 3.375 Gm Inj 3.375 GM in Dextrose 5% Minibag Plus 50 ML IV SCH ×4 (00:26→23:59)
[2017-01-12] MEDS: Heparin 5,000 Unit/mL Inj SUBQ SCH ×4 (00:27→23:59)
--- NOTE | 2017-01-12 01:44 | NUR ---
EMESIS Pt had an episode of emesis around 0120, dark green/brown in color and liquid. Pt's HR went in to the 150's and SPO2 in the low 70's. Pt complained of a headache prior to episode. Pt is stable now with HR 90-100, SPO2 low 90's, dilt gtt increased to 15mg/hr and O2 remains @ 10L oxy-mask. No other issues noted @ this time.
--- NOTE | 2017-01-12 04:55 | ABG ---
DateTimeAnalyzed 04:52:00 -_ pH ____7.273 - 7.350 7.450 pCO2 ___59.4__ -mmHg 35.0 45.0 pO2 ___80.9__ -mmHg 69.0 116 HCO3- ___26.6__ -mmol/L 22.0 26.0 ABE ___-1.1__ -mmol/L -2.0 2.0 tHb ___14.1__ -g/dL O2Hb ___93.2__ -% COHb ____1.3__ -% MetHb ____0.9__ -% sO2 ___95.3__ -% FIO2 ___21.0__ -% Drawn By MD - Oxygen Device 2 __CANNULA - Date/Time Notified____ 04:55:00 -_ Liter_Flow ___30.0__ -L/min Oxygen Device 1 HIGH FLOW - Notified By MD - Notified Whom DR FUIMANO - B 758 -mmHg tO2 ___18.5__ -Vol% OrderingPhysicianInitials mf - Virgil test _Positive -
--- NOTE | 2017-01-12 05:22 | NUR ---
HIGH FLOW Pt de-sated to mid 70's on 10L oxy-mask, pt stayed at low 80's on 15L oxy-mask. Pt initially put on high flow 30L @ 80% sating 93% then bumped down to 25L @ 45% sating 89%. Addendum: 01/12/17 at 0636 by ERICKA CABRALES RN sating 83-84% on 25L @45% high flow
[2017-01-12] MEDS: Diltiazem Inj 125 MG in 0.9% Sodium Chloride 100 ML, Pharmacy To Mix 1 EA IV SCH ×2 (06:06→12:47)
[2017-01-12] MEDS: Insulin LISPRO 300 Unit/3 mL Inj SUBQ SCH ×4 (08:00→20:45)
--- NOTE | 2017-01-12 10:27 | PCM.PNMED ---
Subjective Date of Service Jan 12, 2017 Subjective She is feeling poorly today with headache and vomiting which she attributes to the Dilaudid. Her abdominal pain almost resolved. She was hungry yesterday. She is also hungry today. No chest pain, palpitations or dyspnea. No difficulty with diarrhea or dysuria. No overnight events other than general discomfort. Exam Vital Signs Vital Sign - Last Date Time Temp Pulse Resp B/P Pulse Ox O2 Delivery O2 Flow Rate FiO2 01/12/17 09:00 36.7 109 20 104/70 89 HI FLOW 55%/25 LPM 25.00 55 Intake and Output 01/11/17 01/11/17 01/12/17 Cumulative From/Thru 15:00 23:00 07:00 01/10/17 15:59 - 01/12/17 06:03 Intake Total 1279 ml 400 ml 2479 ml Output Total 1000 ml 900 ml 2800 ml Balance 279 ml -500 ml -321 ml Intake Oral 700 ml 400 ml 1400 ml IV Total 579 ml 1079 ml Output Urine Total 1000 ml 900 ml 2800 ml Exam Alert and oriented 3, no distress. Fluent speech Anicteric sclera. Lungs are clear with normal rate and effort Heart is regular without murmur gallop or rub Abdomen soft nontender, flat. She has no right upper quadrant tenderness to palpation today. This is an improvement. Extremities are free of edema. Skin is free of rash or lesions. IVs and Medications Medications Reviewed: Medications were reviewed in detail Lab and Diagnostics Result Diagram: 01/11/17 0434 01/11/17 0434 X-Rays, CTs and MRIs X-RAY CHEST ONE VIEW, PORTABLE IMPRESSION: Suspect mild congestive heart failure. Dictated by: Travon John M.D. on 01/10/2017 at 16:37 Approved by: Travon John M.D. on 01/10/2017 at 16:44 US ABDOMEN IMPRESSION: 1. Cholelithiasis with wall thickening. Imaging findings are felt to be credit representative of cholecystitis. Dictated by: Marisel Castillo M.D. on 01/10/2017 at 19:55 Approved by: Marisel Castillo M.D. on 01/10/2017 at 19:57 Assessment & Plan 66 y/o female with a hx of CAD s/p LAD stent in 2008, CHF (most recent Echo on w/EF of 55-60%, severely dilated atria), atrial arrhythmias s/p AICD, diabetes and COPD on 2L chronic home O2 who presented to the ED with the complaint of abdominal pain and an irregular heart beat. Admitted for further management and evaluation of Afib w/RVR and probable cholecystitis. #. Atrial fibrillation w/RVR, poa. Active. -hx of paroxysmal atrial tachycardia s/p ablation and CAD s/p LAD stent in 2008. Pt denies being in Afib before and not anticoagulated. -sent to ED after irregular rhythm noted on AICD monitoring. -ECG showing Afib w/rate of 110. -troponin negative x1, will trend -continue diltiazem drip, home aspirin/statin -hold home isosorbide, losartan, metoprolol, spironolactone. -Echo ordered and pending Plan is to maintain her on a diltiazem drip, transfer yesterday did not happen due to bed availability. At this point we will continue to rate control with diltiazem #. Probable acute cholecystitis, poa. Active. -patient c/o severe RUQ for past week and Abd US with findings consistent with cholecystitis. -WBC 11.5, total bili 0.6, AST/ALT 26/38, alk phos 49 -received 1L of LR, 2L of NS and 2g of IV ceftriaxone in the ED. -general surgery consulted from ED, will see in the morning -NPO after midnight -continue IV ceftriaxone -CMP in the morning Our surgeons reviewed the case and given her bariatric parameters she is not a candidate for cholecystectomy at this institution. We will work towards a transfer. Clinically she seems to be improved with regards to abdominal pain. We will repeat her blood tests and try a full liquid breakfast. We will follow clinically. #. Acute on chronic systolic heart failure idiopathic dilated vs ischemic cardiomyopathy s/p AICD, poa. Ongoing. -most recent ECHO (12/17/15) showing an EF 55-60%, severely enlarged left atrium -proBNP 4350 on admission and CXR suggestive for mild congestive heart failure -consider consult to Cardiology, pending Echo results, pt states she is followed by Dr. Tamez -Echo, ordered. And pending She appears to have acute on chronic congestive heart failure with hypoxia today. We will begin diuresis and use supplemental oxygen as necessary. #. Headache and nausea which she believes are adverse effects to Dilaudid. We will stop Dilaudid and try morphine instead. #. Diabetes mellitus, type 2 (chronic), poa. Presumed stable. -serum glucose on admission 108 -HbA1c pending -held Metformin -low dose correctional insulin ordered No change to current plan. 5. COPD (chronic), poa. Possibly worse. We will use medications as outlined below wall we diuresis her. -oxygen dependent, 2L home O2. Currently at baseline requirement. -does appear in acute exacerbation -continue supplemental oxygen -duonebs q4h prn, albuterol q4 prn 6. Hypothyroidism (chronic), poa. Presumed stable -continue home levothyroxine 7. Hx of depression (chronic), poa. Presumed stable. -reportedly two prior suicide attempts in the past -continue home sertraline CODE STATUS: FULL FEN: Heart healthy/consistent carb; NPO after midnight GI Prophylaxis: not indicated DVT Prophylaxis: Sub-q Heparin, 5,000units Q8h PRN: Acetaminophen-fever/headache/mild/moderate pain Antiemetics, as needed Bowel regimen, as needed. Disposition: Inpatient status, pending transfer likely to [facility]. Pain Evaluation: Pain not Controlled GI Prophylaxis: Not indicated VTE Prophylaxis: Sub-Q Heparin (Unfractionated) Resuscitation Status: CPR: Attempt Resuscitation Virgil Lawrence MD Jan 12, 2017 10:27
[2017-01-12 10:55] LABS: Mean Corpuscular Hemoglobin 32.9 pg (27.0-35.0); Mean Corpuscular Volume 102.5 fL (81-100)
[2017-01-12] MEDS: Albuterol-Ipratropium 3 mL Inhalation Solution NEB PRN ×2 (11:24→19:57)
[2017-01-12] MEDS ORDERED: Furosemide 10 mg/mL 4 mL Inj IVPUSH ONE (15:50)
--- NOTE | 2017-01-12 18:05 | NUR ---
Pain/Resp Patient a/o x 3, c/o headache, resolved with Tylenol. Patient denies nausea or upset stomach, started on liq diet sherif well. O2 HFNC @ 25 L and 55%, sat 83-92%. Tele A fib 90-120's Dilt gtt @ 15 mg/hr. VSS. Patient up to bsc with sba-1 person assist sherif fair. Will cont poc.
[2017-01-13] VITALS (14 sets, daily range): BP systolic 88–101; BP diastolic 49–81; PULSE 79–110; RESP 14–23; O2SAT 88–95
--- NOTE | 2017-01-13 01:36 | NUR ---
HEADACHE Pt c/o a headache, 650mg Tylenol given with good results. Pt stated that she felt much better than the previous night. Pt was upgraded from NPO status to soft foods due to not transferring to [place] for surgery. Pt's blood sugars were 139, no insulin given. Pt is on high flow 25L @ 55% sating low 90's. Pt resting well, no other issues noted @ this time.
[2017-01-13] MEDS: Albuterol-Ipratropium 3 mL Inhalation Solution NEB PRN (05:18)
--- NOTE | 2017-01-13 06:24 | NUR ---
DILT GTT Pt's dilt gtt decreased to 10mg/hr, HR 90-100's
[2017-01-13] MEDS ORDERED: Furosemide 10 mg/mL 4 mL Inj IVPUSH ONE ×2 (08:05→17:00)
[2017-01-13] MEDS: Piperacillin-Tazo 3.375 Gm Inj 3.375 GM in Dextrose 5% Minibag Plus 50 ML IV SCH ×2 (08:44→17:09)
[2017-01-13] MEDS: Heparin 5,000 Unit/mL Inj SUBQ SCH ×2 (08:46→17:10)
[2017-01-13] MEDS: Insulin LISPRO 300 Unit/3 mL Inj SUBQ SCH ×4 (08:46→22:00)
--- NOTE | 2017-01-13 10:59 | NUR ---
Social Work-Readiness for Discharge Data: EMR reviewed. Pt is on day 3 of hospitalization for AFIB with RVR, cholocystitis per H&P. Pt is not medically stable, anticipate discharge in 1-2 more days. Pt is receiving PO meds, working to advance diet from soft to regular. Pt was being considered for transfer to [place]. Pt is not going to be transferred at this time. SW spoke with pt at bedside regarding discharge plan, SW role explained. Pt resides in [place] with her niece. Pt states that [place] at base and "gets along just fine." Pt declined any home health or additional social work needs. Pt to discharge home with niece to transport via POV. No anticipated discharge needs. SW will continue to follow as needs arise. Assessment: Pt [place]. Plan: Pt to discharge home with niece to transport via POV. No anticipated discharge needs. SW will continue to follow as needs arise. Roshni Crystal, BUSINESS COMPUTERS TEACHER
[2017-01-13 11:07] LABS: Mean Corpuscular Hemoglobin 32.8 pg (27.0-35.0); Mean Corpuscular Volume 101.6 fL (81-100)
--- NOTE | 2017-01-13 11:10 | PCM.PNMED ---
Subjective Date of Service Jan 13, 2017 Subjective She has slightly less short of breath. No abdominal pain nausea or difficulty with eating. Some leg edema. No overt orthopnea. No chest pain. She has had paroxysmal A. fib her chronic A. fib since 2012. No overnight events Exam Vital Signs Vital Sign - Last Date Time Temp Pulse Resp B/P Pulse Ox O2 Delivery O2 Flow Rate FiO2 01/13/17 10:02 128 16 89 Nasal Cannula 25 55 01/13/17 03:59 37.0 101/53 Intake and Output 01/12/17 01/12/17 01/13/17 Cumulative From/Thru 15:00 23:00 07:00 01/10/17 15:59 - 01/13/17 06:22 Intake Total 1758 ml 776 ml 5013 ml Output Total 1350 ml 500 ml 4650 ml Balance 408 ml 276 ml 363 ml Intake Oral 1240 ml 476 ml 3116 ml IV Total 518 ml 300 ml 1897 ml Output Urine Total 1350 ml 500 ml 4650 ml Exam Alert and oriented 3, no distress. Fluent speech Anicteric sclera. Lungs are clear with normal rate and effort, she does however of high flow oxygen. Heart is regular without murmur gallop or rub Abdomen soft nontender, flat Extremities 1+ edema. Skin is free of rash or lesions. IVs and Medications Medications Reviewed: Medications were reviewed in detail Lab and Diagnostics Result Diagram: 01/12/17 1045 01/12/17 1045 X-Rays, CTs and MRIs X-RAY CHEST ONE VIEW, PORTABLE IMPRESSION: Suspect mild congestive heart failure. Dictated by: Travon John M.D. on 01/10/2017 at 16:37 Approved by: Trvaon John M.D. on 01/10/2017 at 16:44 US ABDOMEN IMPRESSION: 1. Cholelithiasis with wall thickening. Imaging findings are felt to be u.s. representative of cholecystitis. Dictated by: Marisel Castillo M.D. on 01/10/2017 at 19:55 Approved by: Marisel Castillo M.D. on 01/10/2017 at 19:57 Assessment & Plan 66 y/o female with a hx of CAD s/p LAD stent in 2008, CHF (most recent Echo on w/EF of 55-60%, severely dilated atria), atrial arrhythmias s/p AICD, diabetes and COPD on 2L chronic home O2 who presented to the ED with the complaint of abdominal pain and an irregular heart beat. Admitted for further management and evaluation of Afib w/RVR and probable cholecystitis. #. Chronic Atrial fibrillation w/RVR, poa. Active. -hx of paroxysmal atrial tachycardia s/p ablation and CAD s/p LAD stent in 2008. Pt denies being in Afib before and not anticoagulated. -sent to ED after irregular rhythm noted on AICD monitoring. -ECG showing Afib w/rate of 110. -troponin negative x1, will trend -continue diltiazem drip, home aspirin/statin -hold home isosorbide, losartan, metoprolol, spironolactone. -Echo ordered and pending We will try to wean diltiazem drip after starting oral metoprolol this morning. #. Probable acute cholecystitis, poa. Resolved.. -patient c/o severe RUQ for past week and Abd US with findings consistent with cholecystitis. -WBC 11.5, total bili 0.6, AST/ALT 26/38, alk phos 49 -received 1L of LR, 2L of NS and 2g of IV ceftriaxone in the ED. -general surgery consulted from ED, will see in the morning -NPO after midnight -continue IV ceftriaxone -CMP in the morning Symptoms have improved and resolved. This may represent biliary colic. We will advance to a full diet and follow closely and recheck liver functions white count today. #. Acute on chronic systolic heart failure idiopathic dilated vs ischemic cardiomyopathy s/p AICD, poa. Ongoing. -most recent ECHO (12/17/15) showing an EF 55-60%, severely enlarged left atrium -proBNP 4350 on admission and CXR suggestive for mild congestive heart failure -consider consult to Cardiology, pending Echo results, pt states she is followed by Dr. Tamez -Echo, ordered. And pending She appears to have acute on chronic congestive heart failure with hypoxia today. We will begin diuresis and use supplemental oxygen as necessary. Today we will diurese with 40 of Lasix IV every 12 hours. #. Headache and nausea which she believes are adverse effects to Dilaudid. We will stop Dilaudid and try morphine instead. This is now resolved. #. Diabetes mellitus, type 2 (chronic), poa. Remains stable. -serum glucose on admission 108 -HbA1c pending -held Metformin -low dose correctional insulin ordered No change to current plan. 5. COPD (chronic), poa. Possibly worse. We will use medications as outlined below wall we diuresis her. -oxygen dependent, 2L home O2. Currently at baseline requirement. -does appear in acute exacerbation -continue supplemental oxygen -duonebs q4h prn, albuterol q4 prn 6. Hypothyroidism (chronic), poa. Presumed stable -continue home levothyroxine 7. Hx of depression (chronic), poa. Presumed stable. -reportedly two prior suicide attempts in the past -continue home sertraline CODE STATUS: FULL FEN: Heart healthy/consistent carb; NPO after midnight GI Prophylaxis: not indicated DVT Prophylaxis: Sub-q Heparin, 5,000units Q8h PRN: Acetaminophen-fever/headache/mild/moderate pain Antiemetics, as needed Bowel regimen, as needed. Disposition: Inpatient status, pending transfer likely to [facility]. GI Prophylaxis: Not indicated VTE Prophylaxis: Sub-Q Heparin (Unfractionated) Resuscitation Status: CPR: Attempt Resuscitation Virgil Lawrence MD Jan 13, 2017 11:10
[2017-01-13] MEDS: Ipratropium 0.02% 0.5 mg/2.5 mL Inhalation Solution NEB SCH ×3 (11:30→21:30)
[2017-01-13] MEDS: Isosorbide Mononitrate 30 mg ER24 Tablet PO SCH (11:49)
--- NOTE | 2017-01-13 17:34 | NUR ---
Resp/Activity/Pain/Dilt gtt Patient a/o x 3, c/o head ache and left arm IV site pain. IV site red with 1+ edema. IV D/C'd intact and hot packs applied. Tele A fib 90-110's at rest DIlt gtt discontinued and po meds started. Tele remains A fib 90-110's at rest and 130-140's with activity. Lungs clear bilat, HFNC slowed weaned off per RTC and oxymask @ 4 L applied sat 92-94%. Patient oob amb in room steady gait, dyspnea with exertion. VSS. Will cont poc.
[2017-01-14] VITALS (7 sets, daily range): BP systolic 92–108; BP diastolic 69–70; PULSE 72–106; RESP 20; O2SAT 92–95
[2017-01-14] MEDS: Piperacillin-Tazo 3.375 Gm Inj 3.375 GM in Dextrose 5% Minibag Plus 50 ML IV SCH ×2 (00:35→07:58)
[2017-01-14] MEDS: Heparin 5,000 Unit/mL Inj SUBQ SCH ×2 (00:35→07:55)
--- NOTE | 2017-01-14 04:08 | NUR ---
P: low BP I: withheld lopressor til BP improved E: Start of shift BPs 80/40-50s. Withheld lopressor til MN when BP 108/69. AM BP stable low. Tele a fib, IVCD, rates 90-100s. Denies dyspnea at rest and when ambulating to BR. 4L oxymask sats range 89%-92%. Requesting neb tx in AM hours "I feel tight and wheezy". c/o mild WRAY which resolve and now returns. Tylenol given end of day shift but currently pt refusing additional dose.
[2017-01-14] MEDS: Albuterol-Ipratropium 3 mL Inhalation Solution NEB PRN (04:48)
[2017-01-14] MEDS: Ipratropium 0.02% 0.5 mg/2.5 mL Inhalation Solution NEB SCH ×2 (06:30→11:30)
[2017-01-14] MEDS: Isosorbide Mononitrate 30 mg ER24 Tablet PO SCH (07:52)
[2017-01-14] MEDS: Insulin LISPRO 300 Unit/3 mL Inj SUBQ SCH (07:57)
--- NOTE | 2017-01-14 11:38 | PCM.DIMED ---
Discharge Instructions Date of Service Jan 14, 2017 Dates of Hospitalization Jan 10, 2017 at 21:20 Discharge Diagnosis Discharge Diagnosis #. Chronic Atrial fibrillation with tachycardia, improved #. Biliary colic (gallbladder attack), resolved #. Acute on chronic systolic heart failure idiopathic, improved #. Left elbow cellulitis, secondary to IV site. #. Chronic respiratory failure, hypoxic with home oxygen #. Diabetes mellitus, type 2 (chronic), stable No change to current plan. 5. COPD (chronic), stable. 6. Hypothyroidism, stable 7. Depression , stable Diet Low fat, Low Sodium, Diabetic Activity Limited until seen by PCP Call your provider Fever or Chills, Shortness of breath, Chest pain Patient Instructions Dr. Servin tomorrow or Sunday. Cool compresses to left elbow as needed Oxygen 2 L around the clock Low sodium diet, daily weights. Follow-up Provider: Justyn Servin MD Follow-up with PCP in: 1 week Virgil Lawrence MD Jan 14, 2017 11:38
[2017-01-14] MEDS ORDERED: CEPH500C PO (11:40)
[2017-01-14] MEDS ORDERED: FUR20 PO (11:40)
--- NOTE | 2017-01-14 11:46 | PCM.DC.MED ---
Discharge Summary Date of Service Jan 14, 2017 Dates of Hospitalization Date of Hospital Admission Jan 10, 2017 at 21:20 Date of Discharge: Jan 14, 2017 Providers: Admitting Physician: Abhinav Florez MD Primary Care Physician: David Servin MD Attending Physician: Abhinav Florez MD Diagnosis at Time of Discharge Diagnosis at Time of Discharge #. Chronic Atrial fibrillation with tachycardia, improved #. Biliary colic (gallbladder attack), resolved #. Acute on chronic systolic heart failure idiopathic, improved #. Left elbow cellulitis, secondary to IV site. #. Chronic respiratory failure, hypoxic with home oxygen #. Diabetes mellitus, type 2 (chronic), stable No change to current plan. 5. COPD (chronic), stable. 6. Hypothyroidism, stable 7. Depression , stable Consultations Gen. surgery, Dr. Smith Procedures XRay, CTs & MRIs X-RAY CHEST ONE VIEW, PORTABLE IMPRESSION: Suspect mild congestive heart failure. Dictated by: Travon John M.D. on 01/10/2017 at 16:37 Approved by: Travon John M.D. on 01/10/2017 at 16:44 US ABDOMEN IMPRESSION: 1. Cholelithiasis with wall thickening. Imaging findings are felt to be sales representative trainee of cholecystitis. Dictated by: Marisel Castillo M.D. on 01/10/2017 at 19:55 Approved by: Marisel Castillo M.D. on 01/10/2017 at 19:57 ECG 12 Lead Atrial fibrillation, right bundle and left fascicular block Cardiac Echo Impression nterpretation Summary Left ventricular wall thickness is mildly increased. The left ventricle is mildly dilated. The ejection fraction is estimated to be 50-55%. The right ventricle is mild to moderately dilated. Right ventricular systolic function is moderately reduced. There is a pacemaker lead in the right ventricle. Rheumatic mitral stenosis. The mitral valve mean gradient is 8 mmHg. There is mild mitral regurgitation. The aortic valve is moderately calcified. There is no aortic valve stenosis. There is moderate aortic regurgitation. The right ventricular systolic pressure is estimated at 53 mmHg assuming a right atrial pressure of 15 mm Hg. There is no pericardial effusion. The left atrium is severely dilated. The patient was in atrial fibrillation with heart rates between 94-134 bpm during the exam. Compared to the previous study on 12/17/2015, the atrial fibrillation is new, LV function is not as brisk, RV systolic function is reduced, right sided pressures are higher and the degree of mitral stenosis has progressed. Invasive Procedures None Brief History 66 y/o female with a history of coronary artery disease s/p LAD stent in 2008, congestive heart failure (EF 55-60% on 12/17/15), atrial arrhythmias s/p AICD, diabetes and COPD on 2L chronic home oxygen who presented to the ED with the complaint of abdominal pain and an irregular heart beat. She states that she had recently been setup to monitor her AICD at home when the nurse evaluating her AICD advised the patient to go to the ED for an irregular rhythm. The patient states that her heart beat is always fast and that she is asymptomatic and has not been aware of her irregular rhythm nor has it caused her any chest discomfort. Patient reports arrhythmias in the past but denies being in atrial fibrillation and is not currently anticoagulated. Her main concern has been severe, 8/10 abdominal pain localized to the RUQ for the past week. She states that her pain is constant, not related to eating and radiates to her right side. She denies aggravating or alleviating factors, decreased appetite, fever, chills, nausea, vomiting, diarrhea or constipation. Of note, the patient states that she is followed by Dr. Tamez and reports increased right lower extremity swelling in the last few days. She denies orthopnea, chest pain or palpitations , dizziness, or headaches. She reports shortness of breath which is chronic and at baseline. In the ED: she was afebrile, hypotensive (BP 86/69), tachycardic (HR 107) and tachypneic (RR 24) with oxygen sats of 92% on 2L nasal cannula. Initial troponin was negative x1, pro BNP 4350, TSH 4.490 and D-dimer 1.51. ECG showing an irregularly irregular rhythm with a rate of 110 and RBBB. CXR suggestive for mild congestive heart failure. Abdominal ultrasound revealed cholelithiasis with wall thickening consistent with cholecystitis. Additional labs: WBC 11.5, H/H 15.3/46.9, plts 215 Na+ 136, K+ 4.8, Cl- 98, bicarb 22 BUN 19, Cr 1.04 Calcium 8.9 Mg 1.4 Glucose 108 total bili 0.6 AST/ALT 26/38 alk phos 49, She received 2g of IV ceftriaxone, 1L bolus of LR as well as 1L boluses of NS x2 and was started on a diltiazem drip. Hospital Course Discharge Diagnosis #. Chronic Atrial fibrillation with tachycardia, improved. The patient had fibrillation with rapid ventricular response requiring a diltiazem drip for most of the course of her hospitalization. She was initially nothing by mouth with thought that she may have cholecystitis. When she was resumed on oral metoprolol she is able to come off the diltiazem drip and this problem resolved to its baseline. #. Biliary colic (gallbladder attack), resolved. He was initially concern for cholecystitis based on abdominal pain as well as ultrasound. However her symptoms improved. Initially surgery thought she may require transfer to [facility] for surgery. This is based her bariatric weight parameters being over threshold for anesthesia at [facility]. However her symptoms completely improved and labs normalize consistent with possible biliary colic. She was however empiric antibiotics for a short time. #. Acute on chronic systolic heart failure idiopathic, improved. She became more distressed and had acute respiratory failure with hypoxia. She required high flow nasal cannula oxygen and was diuresed aggressively. Also it is improved and she was able to be placed back on her baseline oxygen. #. Left elbow cellulitis, secondary to IV site. She developed any erythema over the left arm secondary to an IV site. This is somewhat indurated but not fluctuant. This is felt to be consistent with a soft tissue skin infection on the day of discharge. This will be treated with oral antibiotics. #. Acute on chronic respiratory failure, hypoxic (with home oxygen). She was able to come back down from high flow oxygen to her baseline oxygen of 2-4 L nasal cannula at the time of discharge. #. Diabetes mellitus, type 2 (chronic), stable No change to current plan. This remained stable throughout hospitalization 5. COPD (chronic), stable. This remained stable throughout hospitalization. 6. Hypothyroidism, stable 7. Depression , stable Exam Vital Signs (Last) Date Time Temp Pulse Resp B/P Pulse Ox O2 Delivery O2 Flow Rate FiO2 01/14/17 11:42 74 20 93 Nasal Cannula 2.00 01/14/17 07:43 36.9 100/69 01/13/17 11:06 55 Exam Patient seen and examined on the day of discharge. Test 01/10/17 16:21 01/11/17 04:34 01/11/17 10:25 01/12/17 10:45 D-Dimer 1.51mg/L FEU (<0.50) Magnesium Level 1.4mg/dL (1.6-2.6) Pro-B-Type Natriuretic Peptide 4350pg/mL (0-287) Thyroid Stimulating Hormone (TSH) 4.490uIU/mL (0.450-4.500) Neutrophils (%) (Auto) 56.6% (40-74) Lymphocytes (%) (Auto) 33.3% (14-46) Monocytes (%) (Auto) 7.8% (4-12) Eosinophils (%) (Auto) 1.5% (0-5) Basophils (%) (Auto) 0.6% (0-3) Hemoglobin A1c 6.3% (4.8-5.6) Troponin T < 0.010ug/L (0.0-0.011) Lipase 17U/L (13-60) Test 01/13/17 11:04 White Blood Count 9.2th/mm3 (3.8-10.1) Red Blood Count 4.30mil/mm3 (3.90-5.20) Hemoglobin 14.1g/dL (12.0-15.6) Hematocrit 43.7% (35.0-46.0) Mean Corpuscular Volume 101.6fL (81-100) Mean Corpuscular Hemoglobin 32.8pg (27.0-35.0) Mean Corpuscular Hemoglobin Concent 32.3% (32.0-37.0) Red Cell Distribution Width 13.9% (12.3-15.4) Platelet Count 188bil/L (150-400) Sodium Level 140mEq/L (134-144) Potassium Level 4.5mEq/L (3.5-5.2) Chloride Level 98mEq/L (97-108) Carbon Dioxide Level 27mmol/L (18-29) Blood Urea Nitrogen 12mg/dL (8-27) Creatinine 0.80mg/dL (0.57-1.00) Estimat Glomerular Filtration Rate 103mL/min (>59) Glucose Level 173mg/dL (60-99) Calcium Level 9.0mg/dL (8.5-10.1) Total Bilirubin 1.0mg/dL (0.0-1.2) Aspartate Amino Transf (AST/SGOT) 21U/L (0-50) Alanine Aminotransferase (ALT/SGPT) 22U/L (0-32) Alkaline Phosphatase 46U/L (25-165) Total Protein 7.1g/dL (6.4-8.4) Albumin 3.8g/dL (3.4-5.0) Discharge Medications Discharge Medications Aspirin (Aspirin) 81 Mg Tablet 81 MG PO DAILY (Reported) Atorvastatin (Lipitor) 40 Mg Tablet 40 MG PO HS (Reported) Cephalexin (Cephalexin) 500 Mg Capsule 500 MG PO QID Prescribed by: VIRGIL CARTER MD Furosemide (Furosemide) 20 Mg Tab 20 MG PO DAILY Prescribed by: VIRGIL CARTER MD Ipratropium [place] (Atrovent HFA) 200 Puff/12.9 Gm Inhaler 2 PUFFS INHALATION QID (Reported) Isosorbide MN ER (Isosorbide MN ER) 30 Mg Tab.er.24h 30 MG PO QAM (Reported) Levothyroxine (Levothyroxine) 50 Mcg Tablet 50 MCG PO DAILY (Reported) Losartan Potassium (Losartan Potassium) 50 Mg Tablet 50 MG PO QAM (Reported) Metformin (Glucophage) 1,000 Mg Tablet 1,000 MG PO BIDWM (Reported) Metoprolol Tartrate (Metoprolol Tartrate) 50 Mg Tablet 50 MG PO BID (Reported) Sertraline HCl (Sertraline) 50 Mg Tablet 50 MG PO DAILY Prescribed by: SAVANNAH ARMANDO DO Spironolactone (Spironolactone) 25 Mg Tablet 12.5 MG PO DAILY (Reported) As needed Albuterol Neb Soln (Albuterol Neb Soln) 0.63 Mg/3 Ml Vial.neb 3 ML INHALATION QID PRN PRN For Shortness of Breath (Reported) Albuterol Sulfate (Ventolin HFA Inhaler) 200 Puff/18 Gm Inhaler 2 PUFFS INHALATION QID PRN PRN For Shortness of Breath (Reported) Nitroglycerin SL (Nitrostat) 0.4 Mg Tab.subl 0.4 MG SL Q5MIN PRN PRN For Chest Pain (Reported) Followup Plan Disposition: Home Discharge Diet: Low fat, Low Sodium, Diabetic Discharge Activity: Limited until seen by PCP Patient Instructions Dr. Gareth marshorrow or Sunday. Cool compresses to left elbow as needed Oxygen 2 L around the clock Low sodium diet, daily weights. Follow-up Provider: Justyn Servin MD Follow-up with PCP in: 1 week Time spent 45 minutes Virgil Catrer MD Jan 14, 2017 11:46
--- NOTE | 2017-01-14 12:15 | NUR ---
Social Work-Discharge Data: EMR reviewed. Pt is on day 4 of hospitalization for AFIB with RVR, cholocystitis per H&P. Pt to discharge today. Pt to discharge home with niece to transport via POV. No discharge needs. Assessment: Pt who is independent at base. Plan: Pt to discharge home with niece to transport via POV. No discharge needs. Roshni Crystal MSW
--- NOTE | 2017-01-14 12:38 | NUR ---
Discharge note Patient a/o x 3, c/o headache x1, Tylenol given with good effect. Patient oob amb indep in room steady gait. VSS, tele A fib 90-100's. O2 decreased to 2 L nc sat 91-94 % at rest. Patient showered indep this a.m. very dyspniec post shower O2 sat 76%, increased to 4 L nc for activity, sat 85-88%, RR 28-30 min. Patient encouraged to take freq rest periods. IV SL and tele removed intact. Left arm remains red, swollen and warm to touch, hot pack applied and arm eval by MD prior discharge. Patient given discharge instructions, prescriptions, medication reconciliation, info on diagnosis, diet and meds. All questions answered. Patient taken to the car with all belongings and discharged home with friend.
== END 2017-01-14 12:30 | disposition home or self-care (01) | DRG 308 ==
LOC: SED 15:42 → PCC 21:20
PROVIDERS: ADMIT Hospitalist; ATTEND Hospitalist
PROC: 4A033R1 Measurement of Arterial Saturation, Peripheral, Percutaneous Approach (ICD-10-PCS; principal; 2017-01-12)
DX: I48.2 Chronic atrial fibrillation (principal); I50.23 Acute on chronic systolic (congestive) heart failure; J96.11 Chronic respiratory failure with hypoxia; E11.9 Type 2 diabetes mellitus without complications; E03.9 Hypothyroidism, unspecified; F32.9 Major depressive disorder, single episode, unspecified; L03.114 Cellulitis of left upper limb; Z79.82 Long term (current) use of aspirin; Z79.84 Long term (current) use of oral hypoglycemic drugs; Z87.891 Personal history of nicotine dependence; Z95.810 Presence of automatic (implantable) cardiac defibrillator; Z95.5 Presence of coronary angioplasty implant and graft; K80.20 Calculus of gallbladder without cholecystitis without obstruction

== ENCOUNTER 2017-01-22 16:59 | Inpatient (IN) | payer OTHER, MEDICAID ==
[~2017-01-22] VITALS: Ht 160 cm; Wt 111.8 kg
[~2017-01-22 16:59] MED LIST changes: +ALBU0.63 INHALATION; +ALBU18HF INHALATION; +ATRINH INHALATION; +CEPH500C PO; +FUR20 PO
[2017-01-22 17:13] VITALS: BP 88/61; PULSE 119; RESP 20; O2SAT 91
--- NOTE | 2017-01-22 17:21 | ED.REPORT ---
HPI-Chest Pain 40 and Over Date of Service Jan 22, 2017 ED Provider: Dr. Crawley Pt is a 66 y/o female w/ a hx of A-fib, current cholelithiasis, dilated cardiomyopathy, paroxysmal atrial tachycardia s/p AICD placement, NIDDM, HTN, hyperlipidemia, COPD on 3 L home O2, presenting to the ED via EMS c/o ongoing dyspnea on exertion onset about 1 week ago. The patient was admitted to [facility] on - 01/14 for A-fib with RvR at which time she was also experiencing RUQ abdominal pain which was found to be caused by gallstones. She states that her dyspnea on exertion has been at the same level of severity since she was discharged. Her abdominal pain has persisted mildly since discharge and is controlled by PO meds. She decided to see her PCP Dr. Servin today regarding her dyspnea who told her that she looked very unwell and called an ambulance to bring her to the ED. She denies CP, cough, fever, vomiting, diarrhea. Nursing Notes Stated Complaint: RAPID AFIB Chief Complaint: Dysrhythmia/Cardiac Nursing Notes Reviewed: Yes Allergies: Coded Allergies: lisinopril (Verified Adverse Reaction, Intermediate, cough, 10/27/15) Scheduled Aspirin (Aspirin) 81 Mg Tablet 81 MG PO DAILY Atorvastatin (Lipitor) 40 Mg Tablet 40 MG PO HS Cephalexin (Cephalexin) 500 Mg Capsule 500 MG PO QID Furosemide (Furosemide) 20 Mg Tab 20 MG PO DAILY Ipratropium [place] (Atrovent HFA) 200 Puff/12.9 Gm Inhaler 2 PUFFS INHALATION QID Isosorbide MN ER (Isosorbide MN ER) 30 Mg Tab.er.24h 30 MG PO QAM Levothyroxine (Levothyroxine) 50 Mcg Tablet 50 MCG PO DAILY Losartan Potassium (Losartan Potassium) 50 Mg Tablet 50 MG PO QAM Metformin (Glucophage) 1,000 Mg Tablet 1,000 MG PO BIDWM Metoprolol Tartrate (Metoprolol Tartrate) 50 Mg Tablet 50 MG PO BID Sertraline HCl (Sertraline) 50 Mg Tablet 50 MG PO DAILY Spironolactone (Spironolactone) 25 Mg Tablet 12.5 MG PO DAILY Scheduled PRN Albuterol Neb Soln (Albuterol Neb Soln) 0.63 Mg/3 Ml Vial.neb 3 ML INHALATION QID PRN PRN For Shortness of Breath Albuterol Sulfate (Ventolin HFA Inhaler) 200 Puff/18 Gm Inhaler 2 PUFFS INHALATION QID PRN PRN For Shortness of Breath Nitroglycerin SL (Nitrostat) 0.4 Mg Tab.subl 0.4 MG SL Q5MIN PRN PRN For Chest Pain General Time Seen by MD: 17:20 Chief Complaint Shortness of breath Hx Obtained From: Patient, EMS Arrived By: Ambulance Sudden in Onset?: No Onset Occurred: 1 week ago Symptom Duration: Since onset Severity: Current: No pain currently Severity: Maximum: No pain Past Medical History Past Medical History Notes: Echo 05/18/14: EF 55-60%, rheumatic mitral valve with moderate stenosis (gradient 3.8mmHg) (has had EF as low as 30%) Past Medical History History of systolic congestive heart failure due to 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 History of paroxysmal atrial tachycardia vs supraventricular tachycardia s/p ablation. CAD s/p LAD stent in 2008 COPD oxygen dependent 2 L Hypothyroidism Diabetes mellitus, type 2 Morbid obesity, BMI >40.0 Depression w/hx of two suicidal attempts Past Surgical History Appendectomy Tonsillectomy Back surgery Cardiac cath with stent place in 2016 Carpal tunnel surgery Family History Father- Unknown Mother - CHF and Arthritis, at 67. Smoking History Former Smoker Social History Alcohol Use: "Social" Drug Use: THC Occupation Retired nurses aid. Ambulatory Status Independent Review of Systems Constitutional: Denies: Chills, Fever Respiratory: Reports: Dyspnea on exertion, Shortness of breath, Denies: Non-productive cough Cardiovascular: Reports: Palpitations, Denies: Chest pain, Edema GI: Reports: Abdominal pain, Denies: Diarrhea, Nausea, Vomiting Complete sys rev & neg: except as marked. Physical Exam Initial Vital Signs Vital Signs (First) Date Time Temp Pulse Resp B/P Pulse Ox O2 Delivery O2 Flow Rate FiO2 01/22/17 17:13 36.7 119 20 88/61 91 Simple Mask 7 Initial VS: Reviewed, Vital signs abnormal Head / Eyes: Atraumatic, Normocephalic, PERRL ENT: Mucous membranes moist, Conjunctiva normal, No scleral icterus Neck: Supple, Full range of motion Extremities: Vascular intact, Neuro intact Skin: Warm, Dry, No cyanosis Neurologic: Alert, Oriented, Nonfocal Psychiatric: Mood/affect normal, Behavior normal, Normal thought content General/Constitutional: Awake, Alert, No acute distress, Cooperative, Not toxic appearing Respiratory / Chest: Atraumatic, Breath sounds NL, Breath sounds = bilat, No respiratory distress, No rales, No rhonchi, No wheezing, No retractions, No stridor, No chest tenderness, No chest wall deformity, No crepitus Cardiovascular: Heart rate NL, Regular rhythm, Heart sounds NL, No gallop, No murmurs, No rubs, Cap refill not delayed, Peripheral circulation NL Lower Ext Edema: Positive: Ankle Trace edema bilat Abdomen: Atraumatic, Soft, No guarding, No rebound, No distention Tenderness/Guarding/Rebound: Positive: Tender RUQ... (Mild) Interpretation & Diagnostics Lab Results Interpretation Result Diagram: 01/22/17 1629 Test 01/22/17 16:29 01/22/17 17:15 01/22/17 18:02 White Blood Count 9.9th/mm3 (3.8-10.1) Red Blood Count 4.16mil/mm3 (3.90-5.20) Hemoglobin 13.8g/dL (12.0-15.6) Hematocrit 42.4% (35.0-46.0) Mean Corpuscular Volume 101.9fL (81-100) Mean Corpuscular Hemoglobin 33.2pg (27.0-35.0) Mean Corpuscular Hemoglobin Concent 32.5% (32.0-37.0) Red Cell Distribution Width 14.3% (12.3-15.4) Platelet Count 242bil/L (150-400) Neutrophils (%) (Auto) 76.1% (40-74) Lymphocytes (%) (Auto) 16.3% (14-46) Monocytes (%) (Auto) 5.6% (4-12) Eosinophils (%) (Auto) 1.2% (0-5) Basophils (%) (Auto) 0.5% (0-3) Prothrombin Time 11.5sec (8.1-12.5) Prothromb Time International Ratio 1.07ratio Hold Kerr Top Tube Received (Received) Hold Urine Received (Received) ECG Interpretation ECG Interpretation: Atrial fibrillation rate 99 Pacemaker spikes RBBB and LPFB Time: 17:37 Interpreted by: ED physician Normal ECG Interpretation: No acute ischemic changes Re-Eval/Medical Decision Counseled Regarding: Diagnosis, Lab results Discharge & Departure Discharge Condition All VS Reviewed: Yes Condition: Stable Referrals: David Servin MD (PCP) Care Transferred to: Dr. Wells Care Transferred at: 18:00 Scribe Attestation Portions of this note were transcribed by Ar Auguste. I, Dr. Crawley personally performed the history, physical exam and medical decision-making; I reviewed and confirmed the accuracy of the information in the transcribed note. Signed by Lindsey Irene, 01/22/17 - [id number] copies to: David Servin MD, Kirk H MD Jan 22, 2017 17:21 AR AUGUSTE Jan 22, 2017 17:32
[2017-01-22 17:38] LABS: BASOPHILS % (AUTO) 0.5 % (0-3); EOSINOPHILS % (AUTO) 1.2 % (0-5); MONOCYTES % (AUTO) 5.6 % (4-12); Mean Corpuscular Hemoglobin 33.2 pg (27.0-35.0); Mean Corpuscular Volume 101.9 fL (81-100); NEUTROPHILS % (AUTO) 76.1 % (40-74); Platelet Count 242 bil/L (150-400)
[2017-01-22 18:00] LABS: INR 1.07 ratio
[2017-01-22 18:04] VITALS: BP 104/71; PULSE 105; O2SAT 94
[2017-01-22 18:11] LABS: COLOR,URINE YELLOW (YELLOW); OCCULT BLOOD,URINE NEGATIVE (NEGATIVE); UROBILINOGEN,URINE NORMAL (NORMAL)
[2017-01-22 18:15] LABS: APPEARANCE,URINE HAZY (CLEAR,HAZY)
[2017-01-22 18:16] LABS: TROPONIN T < 0.010 ug/L (0.0-0.011)
[2017-01-22 18:19] LABS: Magnesium 1.4 mg/dL (1.6-2.6)
[2017-01-22 18:31] VITALS: BP 100/69; PULSE 99; RESP 29; O2SAT 92
--- NOTE | 2017-01-22 18:46 | DRSVH ---
PROCEDURE: X-RAY CHEST ONE VIEW, PORTABLE ([id number]) INDICATIONS: SOB TECHNIQUE: One view of the chest was acquired. COMPARISON: [facility], CR, XR CHEST 1VW (PORTABLE), 01/11/2017, 10:06. [facility], CR, XR CHEST 1VW (PORTABLE), 07/07/2015, 6:06. FINDINGS: Surgical changes and devices: There is a left chest wall AICD with the lead projecting over the right ventricle. Lungs and pleura: The there is a moderate size right pleural effusion with right basilar consolidatio n or compressive atelectasis. There is also a small left effusion. There is mild pulmonary edema. Mediastinum: Mediastinal contours appear unchanged. Heart size is enlarged. Bones and chest wall: No suspicious bony lesions. Overlying soft tissues appear unremarkable. IMPRESSION: 1. Bilateral pleural effusions, moderate on the right and small and the left, with right basilar con solidation or atelectasis. 2. Mild pulmonary edema. 3. Cardiomegaly. Dictated by: David Flores M.D. on 01/22/2017 at 18:42 Approved by: David Flores M.D. on 01/22/2017 at 18:44
[2017-01-22] MEDS ORDERED: Magnesium Sulf 2 Gm/50mL Water 2 GM in IV Premix 1 EACH IV ONE (19:00)
[2017-01-22] MEDS ORDERED: Furosemide 10 mg/mL 2 mL Inj IVPUSH ONE (19:00)
[2017-01-22 19:10] VITALS: O2SAT 87
[2017-01-22] MEDS ORDERED: Glucose 40% Oral Gel 15 Gm Tube PO PRN (20:35)
[2017-01-22] MEDS ORDERED: Alum-Mag Hydrox-Simeth 30 mL Suspension PO PRN (20:35)
[2017-01-22] MEDS ORDERED: Senna-Docusate 8.6-50 mg Tablet PO PRN (20:35)
[2017-01-22] MEDS ORDERED: Ondansetron 2 mg/mL 2 mL Inj IVPUSH PRN (20:35)
[2017-01-22] MEDS ORDERED: Polyethylene Glycol (PEG) 17 Gm Powder PO PRN (20:35)
[2017-01-22] MEDS ORDERED: LOPE2TAB32 PO (21:34)
[2017-01-22] MEDS ORDERED: IBUP200C PO (21:34)
[2017-01-22] MEDS ORDERED: MULT-140 PO (21:36)
[2017-01-22 21:53] VITALS: BP 124/77; PULSE 108; PULSE 67; RESP 19; O2SAT 92
[2017-01-22] MEDS: Insulin LISPRO 300 Unit/3 mL Inj SUBQ SCH (22:00)
--- NOTE | 2017-01-22 22:37 | PCM.ADCARE ---
Advance Care Planning Note Purpose of Encounter: Active Diagnoses: Acute on Chronic Congestive heart Failure Chronic Hypoxic Respiratory failure with COPD These active diagnoses are sufficient risk that focused discussion on advance car planning is indicated in order to allow the patient to thoughtfully consider personal goals of care and if situations arise that prevent the ability to personally give input to insure appropriate representation of their personal desires through documentation or informed surrogate decision makers Parties in Attendance: patient and me Decisional Capacity: Good Goals of Care Determinations: I reviewed her recurrent Acute on Chronic Congestive Heart exacerbation and COPD requiring 3 L of oxygen at home, and her desires for ongoing aggressive care, including potential intubation and mechanical ventilation as well as CPR. Also discussed who would speak on her behalf should she be unable to do so, she states she is not happy with her family situation and does not want to discuss details. She understands her conditions for both her lung and heart disease carry poor prognosis with no good treatment options available and decides to be DNR and DNI at this time Polst form filled by patient and her Primary care Physician Dr Servin CODE STATUS: DNR/DNI Time Spent Adv.Care Planning: Total time spent [id number] in education and discussion directly related to Advance Care Plannin minutes Abhinav Florez MD Jan 22, 2017 22:37
--- NOTE | 2017-01-22 22:55 | PCM.HPMED ---
Subjective Date of Service Jan 22, 2017 Primary Provider: Admitting Physician: Primary Care Physician: David Servin MD Attending Physician: Admit Status: From the Emergency Department, Full Admit, [facility] Telemetry Chief Complaint: Dyspnea on exertion History of Present Illness: Kayy King is a 66 y/o female with Coronary artery disease s/p LAD stent in 2008, CHF (most recent Echo on 12/17/15 w/EF of 55-60%, severely dilated atria ), atrial arrhythmias s/p AICD, diabetes and COPD on 3L chronic home O2 who presented to [facility] emergency department via EMS complaining of ongoing Dyspnea on exertion Duration was about 1 week as per patient. She states that her dyspnea on exertion was progressively getting worst and associated with a weight gain on about 10 lbs. She denies CP, cough, fever, vomiting, diarrhea. Her abdominal pain has persisted mildly since discharge and is controlled by pain medications. She decided to see her PCP Dr. Servin today regarding her dyspnea who told her that she looked very unwell and called an ambulance to bring her to the ED. She denies any sick contacts. She has been compliant with her furosemide as instructed and is watching the salt content in her food. The patient was admitted to [facility] on 01/10 - 01/14 for A-fib with RvR at which time she was also experiencing RUQ abdominal pain which was found to be caused by gallstones. There was plan to transfer to [facility] if cholecystectomy was indicated Case discussed with Dr Wells. Chest X ray consistent with heart failure and Lasix administered. Patient requiring more oxygen need compared to baseline. Review of Systems: Pertinent positives as noted in HPI. All other systems were reviewed and are negative Allergies Coded Allergies: lisinopril (Verified Adverse Reaction, Intermediate, cough, 10/27/15) Home Medications From recent Discharge Summary Aspirin (Aspirin) 81 Mg Tablet 81 MG PO DAILY (Reported) Atorvastatin (Lipitor) 40 Mg Tablet 40 MG PO HS (Reported) Cephalexin (Cephalexin) 500 Mg Capsule 500 MG PO QID Prescribed by: BAUTISTA CARTER MD Furosemide (Furosemide) 20 Mg Tab 20 MG PO DAILY Prescribed by: BAUTISTA CARTER MD Ipratropium [place] (Atrovent HFA) 200 Puff/12.9 Gm Inhaler 2 PUFFS INHALATION QID (Reported) Isosorbide MN ER (Isosorbide MN ER) 30 Mg Tab.er.24h 30 MG PO QAM (Reported) Levothyroxine (Levothyroxine) 50 Mcg Tablet 50 MCG PO DAILY (Reported) Losartan Potassium (Losartan Potassium) 50 Mg Tablet 50 MG PO QAM (Reported) Metformin (Glucophage) 1,000 Mg Tablet 1,000 MG PO BIDWM (Reported) Metoprolol Tartrate (Metoprolol Tartrate) 50 Mg Tablet 50 MG PO BID (Reported) Sertraline HCl (Sertraline) 50 Mg Tablet 50 MG PO DAILY Prescribed by: SAVANNAH ARMANDO DO Spironolactone (Spironolactone) 25 Mg Tablet 12.5 MG PO DAILY (Reported) As needed Albuterol Neb Soln (Albuterol Neb Soln) 0.63 Mg/3 Ml Vial.neb 3 ML INHALATION QID PRN PRN For Shortness of Breath (Reported) Albuterol Sulfate (Ventolin HFA Inhaler) 200 Puff/18 Gm Inhaler 2 PUFFS INHALATION QID PRN PRN For Shortness of Breath (Reported) Nitroglycerin SL (Nitrostat) 0.4 Mg Tab.subl 0.4 MG SL Q5MIN PRN PRN For Chest Pain (Reported) PMH History of systolic congestive heart failure due to 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 History of paroxysmal atrial tachycardia vs supraventricular tachycardia s/p ablation. CAD s/p LAD stent in 2008 COPD oxygen dependent 2 L Hypothyroidism Diabetes mellitus, type 2 Morbid obesity, BMI >40.0 Depression w/hx of two suicidal attempts . Surgical History Appendectomy Tonsillectomy Back surgery Cardiac cath with stent place in 2016 Carpal tunnel surgery Family History Father- Unknown Mother - CHF Arthritis, at 67. Social History Hx Alcohol Use: Yes (OCCASIONALLY) Hx Substance Use: Yes (MARIJUANA DAILY) Hx Tobacco Use: Yes Smoking Status: Former Smoker Living Arrangement: with Family Exam Vital Signs Vital Sign - Last Date Time Temp Pulse Resp B/P Pulse Ox O2 Delivery O2 Flow Rate FiO2 01/22/17 19:10 87 Simple Mask 6 01/22/17 18:31 99 29 100/69 01/22/17 17:13 36.7 Exam General: Alert, Oriented X3, Cooperative, No acute Distress Eyes: PERRLA, Scleral Anicteric Mouth: Mouth Normal, Mucous Membranes Moist/[place] Neck: Supple, no Thyromegaly, trachea central. Chest & Lungs: Clear to auscultation & percussion, No adventitious breath sounds, no crackles, no wheeze Cardiovascular: Normal S1, Normal S2, No Murmurs/Rubs/Gallops, Regular Rate/ Rhythm, Murmur, Other (No JVD, no peripheral edema) Pulses: Radial (present and equal), Dorsalis Pedi (present and equal) Abdomen: Soft, Non-tender, Non-distended, Normoactive bowel tones. Musculoskeletal: Unremarkable. Normal range of motion, no swollen or erythematous joints Extremities: No edema, no cyanosis, no clubbing. Skin: No rashes. Warm and dry, no erythematous areas Neurological: Grossly neurologically intact, has generalized weakness, Normal Speech, Sensation Intact Lymphatic: Lymph nodes Cervical and Axillary not palpable. Lab and Diagnostics Labs Laboratory Tests Test 01/22/17 16:29 01/22/17 17:15 01/22/17 18:02 White Blood Count 9.9th/mm3 (3.8-10.1) Red Blood Count 4.16mil/mm3 (3.90-5.20) Hemoglobin 13.8g/dL (12.0-15.6) Hematocrit 42.4% (35.0-46.0) Mean Corpuscular Volume 101.9fL (81-100) Mean Corpuscular Hemoglobin 33.2pg (27.0-35.0) Mean Corpuscular Hemoglobin Concent 32.5% (32.0-37.0) Red Cell Distribution Width 14.3% (12.3-15.4) Platelet Count 242bil/L (150-400) Neutrophils (%) (Auto) 76.1% (40-74) Lymphocytes (%) (Auto) 16.3% (14-46) Monocytes (%) (Auto) 5.6% (4-12) Eosinophils (%) (Auto) 1.2% (0-5) Basophils (%) (Auto) 0.5% (0-3) Prothrombin Time 11.5sec (8.1-12.5) Prothromb Time International Ratio 1.07ratio Sodium Level 135mEq/L (134-144) Potassium Level 4.6mEq/L (3.5-5.2) Chloride Level 96mEq/L (97-108) Carbon Dioxide Level 24mmol/L (18-29) Blood Urea Nitrogen 17mg/dL (8-27) Creatinine 0.91mg/dL (0.57-1.00) Estimat Glomerular Filtration Rate 89mL/min (>59) Glucose Level 129mg/dL (60-99) Calcium Level 9.2mg/dL (8.5-10.1) Magnesium Level 1.4mg/dL (1.6-2.6) Total Bilirubin 0.7mg/dL (0.0-1.2) Aspartate Amino Transf (AST/SGOT) 20U/L (0-50) Alanine Aminotransferase (ALT/SGPT) 22U/L (0-32) Alkaline Phosphatase 43U/L (25-165) Troponin T < 0.010ug/L (0.0-0.011) Pro-B-Type Natriuretic Peptide 3781pg/mL (0-287) Total Protein 7.2g/dL (6.4-8.4) Albumin 4.0g/dL (3.4-5.0) Hold Kerr Top Tube Received (Received) Hold Urine Received (Received) Urine Color Yellow (YELLOW) Urine Appearance Hazy (CLEAR,HAZY) Urine pH 6.0 (5.0-8.0) Urine Specific [place] 1.010 (1.003-1.035) Urine Protein Negativemg/dL (NEG,TRACE) Urine Glucose (UA) Negativemg/dL (NEGATIVE) Urine Ketones Negativemg/dL (NEGATIVE) Urine Occult Blood Negative (NEGATIVE) Urine Nitrite Negative (NEGATIVE) Urine Bilirubin Negative (NEGATIVE) Urine Urobilinogen Normalmg/dL (NORMAL) Urine Leukocyte Esterase Negative (NEGATIVE) Urine RBC 0-2/hpf (0-2) Urine WBC 0-5/hpf (0-5) Urine Epithelial Cells Moderate/hpf (NONE-MOD) Urine Crystals None seen (NONE SEEN) Urine Bacteria Few/hpf (NONE-FEW) Urine Hyaline Casts Occasional/lpf (NONE) Urine Granular Casts None seen (NONE SEEN) Urine Waxy Casts None seen (NONE SEEN) Urine Red Blood Cell Casts None seen (NONE SEEN) Urine White Blood Cell Casts None seen (NONE SEEN) Urine Mucus None seen (None Seen) Urine Trichomonas None seen (NONE SEEN) Urine Yeast None (NONE SEEN) Urinalysis Comment None Urine Culture Reflexed Not indicated Result Diagram: 01/22/17 1629 01/22/17 1629 X-Rays, CTs and MRIs X-RAY CHEST ONE VIEW, PORTABLE 01/22 IMPRESSION: 1. Bilateral pleural effusions, moderate on the right and small and the left, with right basilar consolidation or atelectasis. 2. Mild pulmonary edema. 3. Cardiomegaly. Dictated by: David Flores M.D. on 01/22/2017 at 18:42 Approved by: David Flores M.D. on 01/22/2017 at 18:44 Assessment & Plan Kayy King is a 66 y/o female with Coronary artery disease s/p LAD stent in 2008, CHF (most recent Echo on 12/17/15 w/EF of 55-60%, severely dilated atria ), atrial arrhythmias s/p AICD, diabetes and COPD on 3L chronic home O2 who presented to [facility] emergency department via EMS complaining of ongoing Dyspnea on exertion 1. Acute on Chronic Hypoxic Respiratory Failure. Present on admission Secondary to Acute Congestive heart failure. Differential diagnosis includes Pulmonary embolism, COPD exacerbation - continue oxygen supplementation (target range 88-92% due to retention) - consider Non invasive ventilation with BIPAP - treat underlying cause (see below) 2 Acute on Chronic preserved EF Heart Failure. Present on admission Cause is unclear but suspect non compliance with medications and dietary indiscretion. No evidence of any infectious process causing exacerbation - diuretics with Lasix 40 mg IV bid, may consider a high dose of Lasix upon discharge - daily weight and monitor fluids status - CHF clinic referral - note patient is allergic to CALIXTO inhibitor, Losartan 50 mg daily - continuing beta chi and Spironolactone which provide Mortality benefit - consider limited echo if indicated 3 Atrial fibrillation Chronic s/p ablation and CAD s/p LAD stent in 2008. Currently not on any anticoagulation - monitor on telemetry - good rate control, continue Metoprolol 50 mg bid 4 Biliary colic (gallbladder attack), resolved. Concern for cholecystitis based on abdominal pain as well as ultrasound. However her symptoms improved. Initially surgery thought she may require transfer to [facility] for surgery. This is based her bariatric weight parameters being over threshold for anesthesia at [facility]. However her symptoms completely improved and labs normalize consistent with possible biliary colic. 5 Diabetes mellitus, type 2 Presumed controlled with recent A1c 6.3 - held Metformin while inpatient - low dose Lispro correctional insulin algorithm 6 COPD with Chronic Respiratory Failure Does appear in acute exacerbation without any sputum or cough changes from daily variation. Previous smoking history - oxygen dependent, 3 L home O2. - continue DuoNeb as needed 7 Hypothyroidism Presumed stable - continue Levothyroxine 50 mcg daily 8 Depression Presumed stable. - reportedly two prior suicide attempts in the past - continue home sertraline 9. Morbid Obesity BM! 44.6 - Acetaminophen as needed for mild pain/fever/headache - Bowel regimen as needed - Antiemetic as needed Patient admitted under inpatient status with expected length of stay > 2 midnights for severity of present symptoms, complexities of treatment plan and risk for adverse event . Resuscitation Status: DNR/DNI:Do Not Resuscitate/Intubate (she filled a POLST form with Dr Sevrin today) Abhinav Florez MD Jan 22, 2017 20:45
[2017-01-22] MEDS: Sodium Chloride LOK Flush 10 mL Syringe IVFLUSH SCH (23:47)
[2017-01-23] VITALS (13 sets, daily range): BP systolic 87–108; BP diastolic 43–74; PULSE 90–115; RESP 16–22; O2SAT 90–96
[2017-01-23] MEDS: Albuterol-Ipratropium 3 mL Inhalation Solution NEB PRN ×3 (01:36→09:36)
--- NOTE | 2017-01-23 05:08 | NUR ---
Admit Pt arrived to [facility] room 2028 at approx. 2130 via wheelchair from ED; report received from ED RN Boyd Hooks. All belongings transferred with pt. Advanced directive hard copy in chart. Admission documentation completed; med rec completed in ED. Pt initiated on 8L oxymask upon arrival to floor, weaned to 6L throughout night with CPOX and SpO2 of approx. 90-96%. Tele afib 90s-110s.
[2017-01-23 05:35] LABS: Creatine Kinase 43 U/L (21-215)
[2017-01-23] MEDS: Insulin LISPRO 300 Unit/3 mL Inj SUBQ SCH ×4 (07:54→20:04)
[2017-01-23] MEDS: Furosemide 10 mg/mL 4 mL Inj IVPUSH SCH ×2 (07:55→16:57)
[2017-01-23] MEDS: Sodium Chloride LOK Flush 10 mL Syringe IVFLUSH SCH ×3 (07:55→20:04)
--- NOTE | 2017-01-23 11:24 | PCM.PNMED ---
Subjective Date of Service Jan 23, 2017 Subjective Overnight: Patient's O2 requirement initially 8 L oxygen mask weaned to 6 L with evidence of oxygen saturations. SPO2 remained 90-96% telemetry showed continual A. fib in the 90s to 110s. With any type of activities patient's heart rate will escalate to 150s or so Today: Patient awake and alert sitting up in hospital bed appropriately interactive. States she is still somewhat short of breath though does not state any chest pain or abdominal pain Exam Vital Signs Vital Sign - Last Date Time Temp Pulse Resp B/P Pulse Ox O2 Delivery O2 Flow Rate FiO2 01/23/17 10:45 93 01/23/17 09:36 22 92 OxyMask 01/23/17 08:00 36.6 100/67 6.00 Intake and Output 01/22/17 01/22/17 01/23/17 Cumulative From/Thru 15:00 23:00 07:00 01/22/17 17:13 - 01/23/17 05:19 Intake Total 300 ml 300 ml 600 ml Output Total 350 ml 1100 ml 1450 ml Balance -50 ml -800 ml -850 ml Intake Oral 300 ml 300 ml 600 ml Output Urine Total 350 ml 1100 ml 1450 ml # Voids 1 1 # Bowel Movements 0 0 Exam General: Morbidly obese female in no acute distress, well-developed, well- nourished, appropriately interactive HEENT: Normocephalic, atraumatic. External ears without defect. Pupils equal, round, and reactive to light and accommodation. Neck: Supple with full range of motion. No jugular venous distension. No bruits. Cardiovascular: Tachycardic rate, irregularly irregular rhythm. No murmurs appreciated Pulmonary: Bilateral expiratory wheezes heard best and upper anterior lobes. Right lower lobe absent breath sounds. Abdomen: Soft nontender palpation 4 quadrants. Extremities: No clubbing, cyanosis, edema Skin: Normal temperature, turgor, and texture Neurological: Cranial nerves grossly intact. Psychiatric: Normal mood and affect. Alert and oriented to person, place, and time. IVs and Medications Medications Reviewed: Medications were reviewed in detail Lab and Diagnostics Result Diagram: 01/22/17 1629 01/23/17 0443 X-Rays, CTs and MRIs . X-RAY CHEST ONE VIEW, PORTABLE IMPRESSION: 1. Bilateral pleural effusions, moderate on the right and small and the left, with right basilar consolidation or atelectasis. 2. Mild pulmonary edema. 3. Cardiomegaly. Dictated by: David Flores M.D. on 01/22/2017 at 18:42 Assessment & Plan Kayy King is a 66 y/o female with Coronary artery disease s/p LAD stent in 2008, CHF (most recent Echo on 12/17/15 w/EF of 55-60%, severely dilated atria ), atrial arrhythmias s/p AICD, diabetes and COPD on 3L chronic home O2 who presented to [facility] emergency department via EMS complaining of ongoing Dyspnea on exertion hospital day 2 Acute on Chronic Hypoxic Respiratory Failure. Present on admission Secondary to Acute Congestive heart failure. Differential diagnosis includes Pulmonary embolism, COPD exacerbation - continue oxygen supplementation (target range 88-92% due to retention) - consider Non invasive ventilation with BIPAP - treat underlying cause (see below) Acute on Chronic preserved EF Heart Failure. Present on admission. Ongoing Cause is unclear but suspect non compliance with medications and dietary indiscretion. No evidence of any infectious process causing exacerbation - diuretics with Lasix 40 mg IV bid, may consider a high dose of Lasix upon discharge - daily weight and monitor fluids status - CHF clinic referral - note patient is allergic to CALIXTO inhibitor, Losartan 50 mg daily - continuing beta chi and Spironolactone which provide Mortality benefit - consider limited echo if indicated Atrial fibrillation Chronic. Present on admission. Ongoing s/p ablation and CAD s/p LAD stent in 2008. Currently not on any anticoagulation - monitor on telemetry - good rate control, continue Metoprolol 50 mg bid Biliary colic (gallbladder attack), resolved. Concern for cholecystitis based on abdominal pain as well as ultrasound. However her symptoms improved. Initially surgery thought she may require transfer to [facility] for surgery. This is based her bariatric weight parameters being over threshold for anesthesia at [facility]. However her symptoms completely improved and labs normalize consistent with possible biliary colic. -Continue to monitor Diabetes mellitus, type 2. Chronic. Present on admission. Ongoing Presumed controlled with recent A1c 6.3 - held Metformin while inpatient - low dose Lispro correctional insulin algorithm COPD exacerbation with Chronic Respiratory Failure Does appear in acute exacerbation without any sputum or cough changes from daily variation. Previous smoking history - oxygen dependent, 3 L home O2. - continue DuoNeb as needed - Prednisone 40 mg start 5 day course - Azithromycin 500 mg start 5 day course Hyperlipidemia. Chronic. Present on admission. Ongoing -Continue home statin Hypothyroidism. Chronic. Present on admission. Ongoing Presumed stable - continue Levothyroxine 50 mcg daily Depression. Chronic. Present on admission. Ongoing Presumed stable. - reportedly two prior suicide attempts in the past - continue home sertraline Morbid Obesity BMI 44.6. Chronic. Present on admission. Ongoing - Acetaminophen as needed for mild pain/fever/headache - Bowel regimen as needed - Antiemetic as needed Disposition: Patient will remain inpatient status for at least 1 additional day while we transitioned back to oral home medications and identify proper Lasix dosing. . VTE Prophylaxis: Sub-Q Heparin (Unfractionated) Resuscitation Status: DNR/DNI:Do Not Resuscitate/Intubate (she filled a POLST form with Dr Servin today) Attending Statement The patient was seen and examined together with Dr. Penny on 01/23/17 and I agree with the history, exam and plan as outlined in the note above. DANIEL PENNY DO Jan 23, 2017 11:24 Norma Ace DO February 01, 2017 19:14
[2017-01-23] MEDS: Albuterol-Ipratropium 3 mL Inhalation Solution NEB SCH ×3 (11:55→20:09)
[2017-01-23] MEDS: predniSONE 20 mg Tablet PO SCH (12:19)
[2017-01-23] MEDS: Heparin 5,000 Unit/mL Inj SUBQ SCH ×3 (12:22→23:23)
--- NOTE | 2017-01-23 12:52 | NUR ---
Suicide discussion Pt talked to this RN about previous suicide attempt in Jul. I tried with a "Handful of saved up ativan and a sleeping pill." Pt explained it was a "planned procedure" that did not work because of the effectiveness of her defibrillator. Pt states she would not try suicide again because the attempt made her worse off health-[facility]. She says it was a "one time opportunity." This RN asked if she would like to have a chat with the global risk management director, pt declined saying "I don't really wanna talk to anybody about it because it's going to make me cry like I'm about to right now." No further discussion on this topic. Pt denies having any sort of plan or desire to commit suicide as of right now.
[2017-01-23 13:23] LABS: TROPONIN T < 0.010 ug/L (0.0-0.011)
[2017-01-23 13:29] LABS: Creatine Kinase 47 U/L (21-215)
[2017-01-23] MEDS ORDERED: Albuterol 2.5 mg/3 mL Inhalation Solution NEB PRN (16:00)
--- NOTE | 2017-01-23 16:14 | NUR ---
Social Work- Brief Note Data: EMR reviewed. Pt is a 66 year old female admitted 01/22/17 for hypoxia, CHF. Pt was admitted on January 10 for AFIB with RVR. Pt insurance is [employer], [facility] Medicaid. Pt's PCP is David Servin MD. Pt uses 3L O2 at base, currently on 6L O2 right now. Pt has been assessed by [facility], awaiting beginning of RN, LULU, CELL TUBER MACHINE services. SW spoke with Josse Alanis, liaison for [facility] alerting him of pt's hospitalization. Access given. Pt resides in [place] with her niece, Brittaney Pryor [phone]. Pt's DPOA paperwork is in hard chart. Pt to discharge home with resume [facility]a [facility] RN, LULU, CELL TUBER MACHINE and niece to transport via POV. SW will continue to follow. After initial assessment, pt reflected to RN on suicide attempt in 2014 but denies any current suicidal ideation. SW to follow up to ensure pt has appropriate follow up resources for extra support. Assessment: Pt who is open with [facility]a ANDERSON RN, SPECIAL EFFECTS SPECIALIST, and CELL TUBER MACHINE. Plan: SW to follow up to ensure pt has appropriate resources for mental health support prior to discharge. Pt to discharge home with resume Ella ANDERSON RN, LULU, CELL TUBER MACHINE and niece to transport via POV. SW will continue to follow. LISANDRA Artis
[2017-01-23 21:26] LABS: Creatine Kinase 44 U/L (21-215)
[2017-01-24] VITALS (13 sets, daily range): BP systolic 100–111; BP diastolic 67–79; PULSE 80–117; RESP 16–20; O2SAT 87–97
[2017-01-24] MEDS: Albuterol-Ipratropium 3 mL Inhalation Solution NEB SCH ×6 (00:13→19:50)
--- NOTE | 2017-01-24 04:55 | NUR ---
Respiratory Pt on 6L oxymask throughout shift with SPO2 88-96%, desaturating while awake, talking, or on exertion. RT increased to 8L oxymask and unable to wean at present due to pt having severe coughing episode that woke her from sleep. Pt was near-flat and resting, when she woke suddenly with tight, harsh cough and c/o severe dyspnea. SpO2 88-92%, pt unable to describe exactly what dyspnea felt like. Lungs mostly clear to auscultation, some mild wheezing to posterior RLL and decreased breath sounds to bilateral posterior bases. Pt reported relief upon sitting up; paged; after assessments, no new orders placed. Pt encouraged to keep HOB elevated. VSS, tele afib 90s-120s.
[2017-01-24 05:01] LABS: BASOPHILS % (AUTO) 0.2 % (0-3); EOSINOPHILS % (AUTO) 0 % (0-5); MONOCYTES % (AUTO) 5.5 % (4-12); Mean Corpuscular Hemoglobin 33.6 pg (27.0-35.0); Mean Corpuscular Volume 102.3 fL (81-100); NEUTROPHILS % (AUTO) 79.3 % (40-74); Platelet Count 232 bil/L (150-400)
[2017-01-24 05:57] LABS: Magnesium 1.5 mg/dL (1.6-2.6)
[2017-01-24] MEDS: Insulin LISPRO 300 Unit/3 mL Inj SUBQ SCH ×4 (08:00→21:06)
--- NOTE | 2017-01-24 08:30 | NUR ---
Oxygen Pt denies SOB, pt SPO2 90% 8L oxymask, pt SPO2 decreases to 83% when pt removes mask. Encouraged pt to keep mask on for oxygenation. MD notified. Care continues.
[2017-01-24] MEDS: Furosemide 10 mg/mL 4 mL Inj IVPUSH SCH ×2 (09:30→17:45)
[2017-01-24] MEDS: Sodium Chloride LOK Flush 10 mL Syringe IVFLUSH SCH ×3 (09:32→23:26)
[2017-01-24] MEDS: predniSONE 20 mg Tablet PO SCH (09:35)
[2017-01-24] MEDS: Heparin 5,000 Unit/mL Inj SUBQ SCH ×3 (09:36→23:26)
--- NOTE | 2017-01-24 14:12 | PCM.PNMED ---
Subjective Date of Service Jan 24, 2017 Subjective Overnight: Patient states she feels somewhat better than she did on admit, she feels her breathing has become easier and that oxygen is now moving deeper into her lungs. She has remained on 6 L of oxygen mask throughout the shift overnight was stable saturations 88-96%. She does desaturate while awake talking or moving. She did develop a cough overnight nonproductive. Telemetry shows heart rate 98 to 1:15 throughout the night with increases as high as 160 on exertion such as going to the toilet. She states multiple uses of the toilet throughout the night with no difficulty urinating. Today: Patient awake and alert laying in bed appropriately interactive. Only new complaint is a cough, states that she is able to breathe somewhat better. Denies chest pain, abdominal pain. Exam Vital Signs Vital Sign - Last Date Time Temp Pulse Resp B/P Pulse Ox O2 Delivery O2 Flow Rate FiO2 01/24/17 10:35 107 01/24/17 09:20 36.5 19 111/79 94 OxyMask 8.00 Intake and Output 01/23/17 01/23/17 01/24/17 Cumulative From/Thru 15:00 23:00 07:00 01/22/17 17:13 - 01/24/17 05:06 Intake Total 1710 ml 800 ml 3110 ml Output Total 3600 ml 1000 ml 6050 ml Balance -1890 ml -200 ml -2940 ml Intake Oral 1710 ml 800 ml 3110 ml Output Urine Total 3600 ml 1000 ml 6050 ml # Voids 1 # Bowel Movements 0 0 Exam General: Morbidly obese female in no acute distress, well-developed, well- nourished, appropriately interactive. Sitting up in hospital bed with oxygen mask in place HEENT: Normocephalic, atraumatic. External ears without defect. Pupils equal, round, and reactive to light and accommodation. Neck: Supple with full range of motion. No jugular venous distension. Cardiovascular: Tachycardic rate, irregularly irregular rhythm. No murmurs appreciated Pulmonary: Bilateral expiratory wheezes heard best and upper anterior lobes, improved from yesterday. Abdomen: Soft nontender palpation 4 quadrants. Extremities: No clubbing, cyanosis, edema Skin: Normal temperature, turgor, and texture Neurological: Cranial nerves grossly intact. Psychiatric: Normal mood and affect. Alert and oriented to person, place, and time. IVs and Medications Medications Reviewed: Medications were reviewed in detail Lab and Diagnostics Result Diagram: 01/24/1744401/24/17444 X-Rays, CTs and MRIs . X-RAY CHEST ONE VIEW, PORTABLE IMPRESSION: 1. Bilateral pleural effusions, moderate on the right and small and the left, with right basilar consolidation or atelectasis. 2. Mild pulmonary edema. 3. Cardiomegaly. Dictated by: David Flores M.D. on 01/22/2017 at 18:42 Assessment & Plan Kayy King is a 66 y/o female with Coronary artery disease s/p LAD stent in 2008, CHF (most recent Echo on 12/17/15 w/EF of 55-60%, severely dilated atria ), atrial arrhythmias s/p AICD, diabetes and COPD on 3L chronic home O2 who presented to [facility] emergency department via EMS complaining of ongoing Dyspnea on exertion hospital day 3 Acute on Chronic Hypoxic Respiratory Failure. Present on admission Secondary to Acute Congestive heart failure. Differential diagnosis includes Pulmonary embolism, COPD exacerbation - continue oxygen supplementation (target range 88-92% due to retention) - consider Non invasive ventilation with BIPAP - treat underlying cause (see below) Acute on Chronic preserved EF Heart Failure. Present on admission. Ongoing Cause is unclear but suspect non compliance with medications and dietary indiscretion. No evidence of any infectious process causing exacerbation - diuretics with Lasix 40 mg IV bid, may consider a high dose of Lasix upon discharge - daily weight and monitor fluids status, good urine output approximately 2700 mL last 24 hours - CHF clinic referral - note patient is allergic to CALIXTO inhibitor, Losartan 50 mg daily - continuing Spironolactone - Increase metoprolol 100 mg twice a day - consider limited echo if indicated Atrial fibrillation Chronic. Present on admission. Ongoing s/p ablation and CAD s/p LAD stent in 2008. Currently not on any anticoagulation - monitor on telemetry - Remains tachycardic, metoprolol as above Biliary colic (gallbladder attack), resolved. Concern for cholecystitis based on abdominal pain as well as ultrasound. However her symptoms improved. Initially surgery thought she may require transfer to [facility] for surgery. This is based her bariatric weight parameters being over threshold for anesthesia at [facility]. However her symptoms completely improved and labs normalize consistent with possible biliary colic. -Continue to monitor Diabetes mellitus, type 2. Chronic. Present on admission. Ongoing Presumed controlled with recent A1c 6.3 - held Metformin while inpatient - low dose Lispro correctional insulin algorithm COPD exacerbation with Chronic Respiratory Failure Does appear in acute exacerbation without any sputum or cough changes from daily variation. Previous smoking history - oxygen dependent, 3 L home O2. - continue DuoNeb as needed - Prednisone 40 mg start 5 day course - Azithromycin 500 mg start 5 day course Hyperlipidemia. Chronic. Present on admission. Ongoing -Continue home statin Hypothyroidism. Chronic. Present on admission. Ongoing Presumed stable - continue Levothyroxine 50 mcg daily Depression. Chronic. Present on admission. Ongoing Presumed stable. - reportedly two prior suicide attempts in the past - continue home sertraline Morbid Obesity BM! 44.6. Chronic. Present on admission. Ongoing - Acetaminophen as needed for mild pain/fever/headache - Bowel regimen as needed - Antiemetic as needed Disposition: Patient will remain inpatient status for at least 1 another day well tachycardia resolves and we continued to treat underlying CHF exacerbation Pain Evaluation: Adequate Pain Control VTE Prophylaxis: Sub-Q Heparin (Unfractionated) Resuscitation Status: DNR/DNI:Do Not Resuscitate/Intubate (she filled a POLST form with Dr Servin today) Attending Statement The patient was seen and examined together with Dr. Penny on 01/24/2017 and I agree with the history, exam and plan as outlined in the note above. . DANIEL PENNY DO Jan 24, 2017 14:12 Poli Jones MD Jan 27, 2017 08:35
--- NOTE | 2017-01-24 21:53 | NUR ---
BS/OXYGEN Pt's BS 151, no insulin given. Pt was titrated down to 5L oxy-mask sating in low 90's. c/o mild sore throat and has a mild, non-productive cough. Pt's vitals stable, no other complaints @ this time.
[2017-01-25] VITALS (10 sets, daily range): BP systolic 94–118; BP diastolic 49–78; PULSE 78–112; RESP 16–22; O2SAT 89–97
[2017-01-25] MEDS: Albuterol-Ipratropium 3 mL Inhalation Solution NEB SCH ×6 (00:30→20:19)
[2017-01-25 04:20] LABS: BASOPHILS % (AUTO) 0.3 % (0-3); EOSINOPHILS % (AUTO) 0.4 % (0-5); MONOCYTES % (AUTO) 6.1 % (4-12); Mean Corpuscular Hemoglobin 33.1 pg (27.0-35.0); Mean Corpuscular Volume 102.3 fL (81-100); NEUTROPHILS % (AUTO) 73.9 % (40-74); Platelet Count 240 bil/L (150-400)
[2017-01-25 05:23] LABS: Magnesium 1.9 mg/dL (1.6-2.6)
[2017-01-25] MEDS: Insulin LISPRO 300 Unit/3 mL Inj SUBQ SCH ×4 (08:00→21:35)
--- NOTE | 2017-01-25 08:12 | DRSVH ---
PROCEDURE: X-RAY CHEST ONE VIEW, PORTABLE ([id number]) INDICATIONS: SHORT OF BREATH TECHNIQUE: One view of the chest was acquired. COMPARISON: [facility], CR, XR CHEST 1VW (PORTABLE), 01/22/2017, 17:38. FINDINGS: Surgical changes and devices: There is a left chest wall AICD with the lead projecting over the right ventricle. Lungs and pleura: The there is a moderate size right pleural effusion with right basilar consolidatio n or compressive atelectasis. There is also a small left effusion. There is mild pulmonary edema. Mediastinum: Mediastinal contours appear unchanged. Heart size is enlarged. Bones and chest wall: No suspicious bony lesions. Overlying soft tissues appear unremarkable. IMPRESSION: 1. Mild pulmonary edema and by basilar air space opacities redemonstrated not significantly changed. 2. Small pleural effusions, right greater than left. 3. Stable cardiomegaly. Dictated by: Jaime MAY Interpreted: Marisel Castillo MD on 01/25/2017 at 8:10 Transcribed by: TONNY on 01/25/2017 at 8:11 Approved by: Marisel Castillo M.D. on 01/27/2017 at 9:03
[2017-01-25] MEDS: Sodium Chloride LOK Flush 10 mL Syringe IVFLUSH SCH ×2 (08:30→16:56)
[2017-01-25] MEDS: Heparin 5,000 Unit/mL Inj SUBQ SCH ×2 (09:23→16:56)
[2017-01-25] MEDS: Furosemide 10 mg/mL 4 mL Inj IVPUSH SCH ×2 (09:23→16:56)
[2017-01-25] MEDS: predniSONE 20 mg Tablet PO SCH (09:24)
--- NOTE | 2017-01-25 11:15 | NUR ---
Evaluation completed. Please go to "Notes" then click on "Assessments and Notes" (bottom left corner of screen). Then select appropriate discipline tab on top of screen.
--- NOTE | 2017-01-25 11:35 | NUR ---
Breathing Pt stated she felt like she was breathing easier, pt breathing shallow, SPO2 92% 5L oxymask. Care continues.
[2017-01-25] MEDS ORDERED: DABI75CA3 PO (15:45)
--- NOTE | 2017-01-25 15:54 | PCM.PNMED ---
Subjective Date of Service Jan 25, 2017 Subjective Overnight: Atrial fibrillation Heart rate remained in the 80s to 100s overnight , she reported tonight nursing that she felt less if she was breathing easier remained on 5 L oxygen mask with good saturations. Hypotensive episode this morning, morning meds held including metoprolol. Resultant tachycardia. Metoprolol restarted Lasix continues other blood pressure meds continued to be held Today: Awake and alert laying in hospital bed on left side, states her breathing has gotten much better, she can still feel her lungs "getting good air "she denies chest pain shortness of breath abdominal pain nausea vomiting headache or visual changes. Exam Vital Signs Vital Sign - Last Date Time Temp Pulse Resp B/P Pulse Ox O2 Delivery O2 Flow Rate FiO2 01/25/17 14:58 101 16 92 OxyMask 4.00 01/25/17 12:01 36.6 106/58 Intake and Output 01/24/17 01/24/17 01/25/17 Cumulative From/Thru 15:00 23:00 07:00 01/22/17 17:13 - 01/25/17 05:25 Intake Total 850 ml 400 ml 4360 ml Output Total 1900 ml 1000 ml 8950 ml Balance -1050 ml -600 ml -4590 ml Intake Oral 850 ml 400 ml 4360 ml Output Urine Total 1900 ml 1000 ml 8950 ml # Voids 1 # Bowel Movements 0 0 Exam General: Morbidly obese female in no acute distress, well-developed, well- nourished, appropriately interactive. Sitting up in hospital bed with oxygen mask in place. HEENT: Normocephalic, atraumatic. Neck: Supple with full range of motion. No jugular venous distension. Cardiovascular: Tachycardic rate, irregularly irregular rhythm. No murmurs appreciated Pulmonary: Bilateral expiratory wheezes all lung wagner heard best and upper anterior lobes, improved from yesterday. Poor air movement. No use of accessory muscles. Decreased lung sounds bilateral bases significant on the right. Abdomen: Obese Soft nontender palpation 4 quadrants. Extremities: No clubbing, cyanosis, edema Skin: Normal temperature, turgor, and texture Neurological: Cranial nerves grossly intact. Psychiatric: Normal mood and affect. Alert and oriented to person, place, and time. IVs and Medications Medications Reviewed: Medications were reviewed in detail Lab and Diagnostics Result Diagram: 01/25/17 0412 01/25/17 0412 X-Rays, CTs and MRIs . X-RAY CHEST ONE VIEW, PORTABLE IMPRESSION: 1. Bilateral pleural effusions, moderate on the right and small and the left, with right basilar consolidation or atelectasis. 2. Mild pulmonary edema. 3. Cardiomegaly. Dictated by: David Flores M.D. on 01/22/2017 at 18:42 X-RAY CHEST ONE VIEW, PORTABLE IMPRESSION: 1. Mild pulmonary edema and by basilar air space opacities redemonstrated not significantly changed. 2. Small pleural effusions, right greater than left. 3. Stable cardiomegaly. Dictated by: Jaime Solano RRA Interpreted: Marisel Castillo MD on 01/25/2017 at 8:10 Assessment & Plan Kayy King is a 66 y/o female with Coronary artery disease s/p LAD stent in 2008, CHF (most recent Echo on 12/17/15 w/EF of 55-60%, severely dilated atria ), atrial arrhythmias s/p AICD, diabetes and COPD on 3L chronic home O2 who presented to [facility] emergency department via EMS complaining of ongoing Dyspnea on exertion hospital day 4 Acute on Chronic Hypoxic Respiratory Failure. Present on admission. Improving Secondary to Acute Congestive heart failure. Differential diagnosis includes Pulmonary embolism, COPD exacerbation - continue oxygen supplementation (target range 88-92% due to retention) - consider Non invasive ventilation with BIPAP - treat underlying cause (see below) Acute on Chronic preserved EF Heart Failure. Present on admission. Ongoing Cause is unclear but suspect non compliance with medications and dietary indiscretion. No evidence of any infectious process causing exacerbation - diuretics with Lasix 40 mg IV bid, may consider a high dose of Lasix upon discharge - daily weight and monitor fluids status, good urine output approximately 4.6 L - CHF clinic referral - note patient is allergic to CALIXTO inhibitor, Losartan 50 mg daily - held this medication secondary to hypotension - continuing Spironolactone - held secondary to hypotension - Continue metoprolol 100 mg twice a day Atrial fibrillation Chronic. Present on admission. Ongoing s/p ablation and CAD s/p LAD stent in 2008. Currently not on any anticoagulation - Checking insurance company coverage of Pradaxa - We will not start on warfarin secondary to transportation restrictions - monitor on telemetry - Remains tachycardic, metoprolol as above Biliary colic (gallbladder attack), resolved. Concern for cholecystitis based on abdominal pain as well as ultrasound. However her symptoms improved. Initially surgery thought she may require transfer to [facility] for surgery. This is based her bariatric weight parameters being over threshold for anesthesia at [facility]. However her symptoms completely improved and labs normalize consistent with possible biliary colic. -Continue to monitor Diabetes mellitus, type 2. Chronic. Present on admission. Ongoing Presumed controlled with recent A1c 6.3 - held Metformin while inpatient - low dose Lispro correctional insulin algorithm COPD exacerbation with Chronic Respiratory Failure Does appear in acute exacerbation without any sputum or cough changes from daily variation. Previous smoking history - oxygen dependent, 3 L home O2 - continue DuoNeb as needed - Prednisone 40 mg start 5 day course - Azithromycin 500 mg start 5 day course Hyperlipidemia. Chronic. Present on admission. Ongoing -Continue home statin Hypothyroidism. Chronic. Present on admission. Ongoing Presumed stable - continue Levothyroxine 50 mcg daily Depression. Chronic. Present on admission. Ongoing Presumed stable. - reportedly two prior suicide attempts in the past - continue home sertraline Morbid Obesity BM! 44.6. Chronic. Present on admission. Ongoing - Acetaminophen as needed for mild pain/fever/headache - Bowel regimen as needed - Antiemetic as needed Disposition: Patient will remain inpatient status for at least 1 another day well tachycardia resolves and we continued to treat underlying CHF exacerbation Pain Evaluation: Adequate Pain Control VTE Prophylaxis: Sub-Q Heparin (Unfractionated) Resuscitation Status: DNR/DNI:Do Not Resuscitate/Intubate (she filled a POLST form with Dr Servin today) Attending Statement The patient was seen and examined together with Dr. Penny on 01/25/2017 and I agree with the history, exam and plan as outlined in the note above. . DANIEL PENNY DO Jan 25, 2017 15:54 Poli Jones MD Jan 27, 2017 08:35
--- NOTE | 2017-01-25 16:35 | NUR ---
Social Work: Continued Discharge Planning D: Pt discussed in am rounds. Pt is not medically stable for discharge in the next several days. Per PT evaluation pt is safe to discharge home when ready. MD requested SENIOR POWER SCHEDULER obtain OOP expense for Pradaxa. SENIOR POWER SCHEDULER faxed prescription to pt's preferred pharmacy, [facility] in [place]. This prescription requires a Pre-Authoization from [employer]. SENIOR POWER SCHEDULER obtained pre-auth paperwork and provided this to MD to complete and fax. Per patient's pharmacy, they would not be able to get this medication until Sunday at the earliest as they do not have it in stock. Pt may need to obtain this to a larger pharmacy who stocks this medication. A: Pt who is I at baseline. P: Anticipate pt to discharge home when medically stable; SENIOR POWER SCHEDULER to continue to follow and assist with pre-auth process for medication. LISANDRA Ferraro
--- NOTE | 2017-01-25 16:45 | NUR ---
IV Pt pulled IV out of Left Forearm. Replaced IV into LAC. Placement successful. IV patent. Care continues.
[2017-01-26] VITALS (13 sets, daily range): BP systolic 93–127; BP diastolic 54–84; PULSE 58–113; RESP 14–22; O2SAT 91–97
[2017-01-26] MEDS: Albuterol-Ipratropium 3 mL Inhalation Solution NEB SCH ×7 (00:30→23:53)
[2017-01-26] MEDS: Heparin 5,000 Unit/mL Inj SUBQ SCH ×2 (00:30→09:05)
[2017-01-26] MEDS: Sodium Chloride LOK Flush 10 mL Syringe IVFLUSH SCH ×4 (00:30→23:51)
[2017-01-26 04:40] LABS: BASOPHILS % (AUTO) 0.3 % (0-3); EOSINOPHILS % (AUTO) 0.3 % (0-5); Mean Corpuscular Hemoglobin 33.1 pg (27.0-35.0); Mean Corpuscular Volume 101.4 fL (81-100); NEUTROPHILS % (AUTO) 70.9 % (40-74); Platelet Count 286 bil/L (150-400)
--- NOTE | 2017-01-26 06:09 | NUR ---
OXYGEN/REST Pt was on 4L oxy-mask most of the night. Bumped up to 5L oxy-mask temporarily for de-sats in mid 80's. Pt was able to rest throughout the night with very few complaints. Pt had an uneventful night, vitals stable, no other issues noted at this time.
[2017-01-26] MEDS: Insulin LISPRO 300 Unit/3 mL Inj SUBQ SCH ×4 (08:00→21:19)
[2017-01-26] MEDS: predniSONE 20 mg Tablet PO SCH (09:03)
[2017-01-26] MEDS: Furosemide 10 mg/mL 4 mL Inj IVPUSH SCH ×2 (09:05→17:43)
--- NOTE | 2017-01-26 10:48 | NUR ---
Up in bed Pt states she is feeling better, especially when sitting straight up. Pt stated she will sit in chair this shift. Encouraged pt to sit in chair. 4 L oxymask SPO2 93%.
--- NOTE | 2017-01-26 15:12 | NUR ---
Social Work: Pre-Auth Update D: IN [employer] SERVICE TECHNICIAN receive fax from pt's insurance. They have denied MD's request for Pradaxa and state that they would consider Xeralto or Warfarin but would again require Pre-Auth. completed pre-auth form and faxed to pt's insurance for review. A: Pt who is I a baseline. P: Anticipate pt to discharge home when medically stable LISANDRA Ferraro
--- NOTE | 2017-01-26 17:08 | PCM.PNMED ---
Subjective Date of Service Jan 26, 2017 Subjective Overnight: No acute events reported. Patient remained on oxygen mask throughout the night, and bradycardia desaturation in the mid 80s resolved with slight increase in oxygenation. Patient rested throughout most night with no complaints. Telemetry overnight showed A. fib rate throughout the night our rate ranged from the 90s to the 120s. Occasional PVCs. Today: Patient awake and alert sitting up in hospital beds. States that she feels better overall, is able to get up and move around the room though still states shortness of breath. Exam Vital Signs Vital Sign - Last Date Time Temp Pulse Resp B/P Pulse Ox O2 Delivery O2 Flow Rate FiO2 01/26/17 16:41 36.6 78 20 120/84 96 OxyMask 4.00 Intake and Output 01/25/17 01/25/17 01/26/17 Cumulative From/Thru 14:59 22:59 06:59 01/22/17 17:13 - 01/26/17 06:33 Intake Total 1000 ml 1037 ml 6397 ml Output Total 1700 ml 1000 ml 42166 ml Balance -700 ml 37 ml -5253 ml Intake Oral 1000 ml 1037 ml 6397 ml Output Urine Total 1700 ml 1000 ml 04218 ml # Voids 1 # Bowel Movements 1 1 Exam General: Morbidly obese female in no acute distress, well-developed, well- nourished, appropriately interactive. Sitting up in hospital bed with oxygen mask in place. HEENT: Normocephalic, atraumatic. Neck: Supple with full range of motion. Cardiovascular: Tachycardic rate, irregularly irregular rhythm. No murmurs appreciated Pulmonary: Bilateral expiratory wheezes all lung wagner heard best and upper anterior lobes, improved from yesterday. Improved air movement. Abdomen: Obese Soft nontender palpation 4 quadrants. Extremities: No clubbing, cyanosis, edema Skin: Normal temperature, turgor, and texture Neurological: Cranial nerves grossly intact. Psychiatric: Normal mood and affect. Alert and oriented to person, place, and time. IVs and Medications Medications Reviewed: Medications were reviewed in detail Lab and Diagnostics Result Diagram: 01/26/1742901/26/17 043 X-Rays, CTs and MRIs . X-RAY CHEST ONE VIEW, PORTABLE IMPRESSION: 1. Bilateral pleural effusions, moderate on the right and small and the left, with right basilar consolidation or atelectasis. 2. Mild pulmonary edema. 3. Cardiomegaly. Dictated by: David Flores M.D. on 01/22/2017 at 18:42 X-RAY CHEST ONE VIEW, PORTABLE IMPRESSION: 1. Mild pulmonary edema and by basilar air space opacities redemonstrated not significantly changed. 2. Small pleural effusions, right greater than left. 3. Stable cardiomegaly. Dictated by: Jaime Solano RRA Interpreted: Marisel Castillo MD on 01/25/2017 at 8:10 Assessment & Plan Kayy King is a 66 y/o female with Coronary artery disease s/p LAD stent in 2008, CHF (most recent Echo on 12/17/15 w/EF of 55-60%, severely dilated atria ), atrial arrhythmias s/p AICD, diabetes and COPD on 3L chronic home O2 who presented to [facility] emergency department via EMS complaining of ongoing Dyspnea on exertion hospital day 5 1. Acute on Chronic Hypoxic Respiratory Failure. Present on admission. Improving Secondary to Acute Congestive heart failure. Differential diagnosis includes Pulmonary embolism, COPD exacerbation - continue oxygen supplementation (target range 88-92% due to retention) - consider Non invasive ventilation with BIPAP - treat underlying cause (see below) 2. Acute on Chronic preserved EF Heart Failure. Present on admission. Ongoing Cause is unclear but suspect non compliance with medications and dietary indiscretion. No evidence of any infectious process causing exacerbation - diuretics with Lasix 40 mg IV bid, may consider a high dose of Lasix upon discharge - daily weight and monitor fluids status, good urine output approximately 4.6 L - CHF clinic referral - note patient is allergic to CALIXTO inhibitor, Losartan 50 mg daily - held this medication secondary to hypotension - continuing Spironolactone - held secondary to hypotension - Continue metoprolol 100 mg twice a day 3. Atrial fibrillation Chronic. Present on admission. Ongoing s/p ablation and CAD s/p LAD stent in 2008. Currently not on any anticoagulation - Checking insurance company coverage of Pradaxa - We will not start on warfarin secondary to transportation restrictions - monitor on telemetry - Remains tachycardic, metoprolol as above - Assurance denied Pradaxa - Recent started on Elequis today, will follow up with insurance/social work to see if this medication will be covered 4. Biliary colic (gallbladder attack), resolved. Concern for cholecystitis based on abdominal pain as well as ultrasound. However her symptoms improved. Initially surgery thought she may require transfer to [facility] for surgery. This is based her bariatric weight parameters being over threshold for anesthesia at [facility]. However her symptoms completely improved and labs normalize consistent with possible biliary colic. -Continue to monitor 4. Diabetes mellitus, type 2. Chronic. Present on admission. Ongoing Presumed controlled with recent A1c 6.3 - held Metformin while inpatient - correctional insulin algorithm 5. COPD exacerbation with Chronic Respiratory Failure Does appear in acute exacerbation without any sputum or cough changes from daily variation. Previous smoking history - oxygen dependent, 3 L home O2 - continue DuoNeb as needed - Prednisone 40 mg 5 day course - decreased to 30 mg daily 01/26/2017 - Azithromycin 500 mg 5 day course 6. Hyperlipidemia. Chronic. Present on admission. Ongoing -Continue home statin 7. Hypothyroidism. Chronic. Present on admission. Ongoing Presumed stable - continue Levothyroxine 50 mcg daily 8. Depression. Chronic. Present on admission. Ongoing Presumed stable. - reportedly two prior suicide attempts in the past - continue home sertraline 9. Morbid Obesity BM! 44.6. Chronic. Present on admission. Ongoing - Acetaminophen as needed for mild pain/fever/headache - Bowel regimen as needed - Antiemetic as needed Disposition: Patient will remain inpatient status for at least 1 another day well tachycardia resolves and we continued to treat underlying CHF exacerbation Pain Evaluation: Adequate Pain Control VTE Prophylaxis: Sub-Q Heparin (Unfractionated) Resuscitation Status: DNR/DNI:Do Not Resuscitate/Intubate (she filled a POLST form with Dr Servin today) Attending Statement The patient was seen and examined together with Dr. Penny on 01/26/2017 and I agree with the history, exam and plan as outlined in the note above. . DANIEL PENNY DO Jan 26, 2017 17:08 Poli Jones MD Jan 27, 2017 08:36
--- NOTE | 2017-01-26 17:35 | NUR ---
Chair Encouraged pt to sit in chair before and after lunch, pt agreed, pt stated she feels better when sitting up in chair. Care continues.
--- NOTE | 2017-01-27 00:15 | NUR ---
OXYGEN/BLOOD SUGARS Pt tolerating 2.5L oxy-mask sating low 90's. Pt states she will attempt to push herself with ambulating more in the AM. Pt's BS 189, no insulin given.
[2017-01-27 03:40] VITALS: BP 92/55; PULSE 76; RESP 16; O2SAT 95
[2017-01-27 04:09] VITALS: PULSE 73; RESP 18; O2SAT 96
[2017-01-27] MEDS: Albuterol-Ipratropium 3 mL Inhalation Solution NEB SCH ×3 (04:09→12:06)
[2017-01-27 04:35] LABS: BASOPHILS % (AUTO) 0.5 % (0-3); EOSINOPHILS % (AUTO) 0.3 % (0-5); MONOCYTES % (AUTO) 6.2 % (4-12); Mean Corpuscular Volume 102.2 fL (81-100); NEUTROPHILS % (AUTO) 68.9 % (40-74); Platelet Count 275 bil/L (150-400)
[2017-01-27 05:22] LABS: Magnesium 2.1 mg/dL (1.6-2.6)
[2017-01-27 05:28] VITALS: PULSE 115
[2017-01-27 07:25] VITALS: PULSE 104
[2017-01-27 07:41] VITALS: BP 121/62; PULSE 104; RESP 16; O2SAT 96
[2017-01-27 07:49] VITALS: PULSE 77; RESP 18; O2SAT 95
[2017-01-27] MEDS: Insulin LISPRO 300 Unit/3 mL Inj SUBQ SCH (08:00)
[2017-01-27] MEDS ORDERED: predniSONE 20 mg Tablet PO SCH (08:00)
[2017-01-27] MEDS: Furosemide 10 mg/mL 4 mL Inj IVPUSH SCH (08:59)
[2017-01-27] MEDS: Sodium Chloride LOK Flush 10 mL Syringe IVFLUSH SCH (08:59)
--- NOTE | 2017-01-27 11:48 | NUR ---
Social Work: Discharge Data: Pt is on day 5 of hospitalization. EMR reviewed. states pt will d/c today. VOLUNTEER PATIENT REPRESENTATIVE called [facility] and notified them that pt will d/c today, access given. Pt reports she is open with them for RN, LISANDRA, and BUNDLE SORTER. Pt has O2 through [facility]. No further d/c planning needs at this time. VOLUNTEER PATIENT REPRESENTATIVE will continue to follow if needs arise. Assessment: Pt who is independent at baseline. Plan: Pt will d/c home via POV today with resume [facility] RN/LISANDRA/LULU with [facility] for home O2. No further d/c planning needs at this time. VOLUNTEER PATIENT REPRESENTATIVE will continue to follow if needs arise. LISANDRA Ahn
[2017-01-27] MEDS ORDERED: METO100T3 PO (11:49)
[2017-01-27] MEDS ORDERED: APIX5TAB PO (11:49)
[2017-01-27] MEDS ORDERED: FUR20 PO (11:54)
--- NOTE | 2017-01-27 11:59 | PCM.DIMED ---
DANIEL PENNY DO 01/27/17 1159: Discharge Instructions Date of Service Jan 27, 2017 Dates of Hospitalization Jan 22, 2017 at 20:55 Discharge Diagnosis Discharge Diagnosis . 1. Acute on Chronic Hypoxic Respiratory Failure 2. Acute on Chronic preserved EF Heart Failure 3. Atrial fibrillation Chronic 4. Biliary colic (gallbladder attack) 4. Diabetes mellitus, type 2 5. COPD exacerbation with Chronic Respiratory Failure 6. Hyperlipidemia 7. Hypothyroidism 8. Depression Medication Instructions New Prescriptions: I am giving you a prescription for a medication called Apixaban (Eliquis). Please take 5 mg of this medication by mouth both in the morning and at night. I have given you a paper prescription for this which you may fill at any pharmacy, please present this paper prescription with your coupon which was given to you in the hospital and this should cover this medication for one month. I am increasing your dose of furosemide (Lasix) from 20 mg a day to 40 mg a day. Please take 40 mg of this medication by mouth daily. I am giving you a paper prescription for this medication at discharge I am also increasing your metoprolol dose to 100 mg by mouth twice a day. Please take 100 mg of this medication by mouth in the morning and at the evening. I am giving you a paper prescription for this medication at discharge I am also giving you a prescription for medication called prednisone, you were taking this steroid while in the hospital and you need to taper down this dose. You are to take 20 mg (two 10 mg tablets) of this medication by mouth tomorrow 01/28/2017, you are to take another 20 mg of this medication (two 10 mg tablets) by mouth on Finally on 01/29/2017 you are to take one 10 mg tablet of this medication - thus completing your prednisone taper I have continued all of your other medications, you may want to also follow-up with your pharmacy technologist regarding your inhalers and the progression of your COPD. Diet Low fat, Low Sodium, Heart Healthy, Diabetic Activity Limited until seen by PCP Call your provider Fever or Chills, Shortness of breath, Bleeding, Chest pain, Vomitting, Excessive diarrhea, Weakness (unilateral) Patient Instructions Please follow up with Dr. Servin regarding this hospital admission in the next week Please follow-up with Dr. Tamez, your core placer for ongoing management Follow-up Provider: David Servin MD Follow-up with PCP in: 1 week Provider: Familia Tamez MD Follow-up in: 2 weeks Poli Jones MD 01/27/17 1630: Discharge Instructions Attending's Statement The patient was seen and examined together with Dr. Penny on 01/27/2017 and I agree with the history, exam and plan as outlined in the note above. . DANIEL PENNY DO Jan 27, 2017 11:59 Poli Jones MD Jan 27, 2017 16:30
--- NOTE | 2017-01-27 12:07 | PCM.DC.MED ---
Discharge Summary Date of Service Jan 27, 2017 Dates of Hospitalization Date of Hospital Admission Jan 22, 2017 at 20:55 Date of Discharge: Jan 27, 2017 Providers: Admitting Physician: Abhinav Florez MD Primary Care Physician: David Servin MD Attending Physician: Abhinav Florez MD Diagnosis at Time of Discharge Diagnosis at Time of Discharge . 1. Acute on Chronic Hypoxic Respiratory Failure 2. Acute on Chronic preserved EF Heart Failure 3. Atrial fibrillation Chronic 4. Biliary colic (gallbladder attack) 4. Diabetes mellitus, type 2 5. COPD exacerbation with Chronic Respiratory Failure 6. Hyperlipidemia 7. Hypothyroidism 8. Depression Procedures XRay, CTs & MRIs . X-RAY CHEST ONE VIEW, PORTABLE IMPRESSION: 1. Bilateral pleural effusions, moderate on the right and small and the left, with right basilar consolidation or atelectasis. 2. Mild pulmonary edema. 3. Cardiomegaly. Dictated by: David Flores M.D. on 01/22/2017 at 18:42 X-RAY CHEST ONE VIEW, PORTABLE IMPRESSION: 1. Mild pulmonary edema and by basilar air space opacities redemonstrated not significantly changed. 2. Small pleural effusions, right greater than left. 3. Stable cardiomegaly. Dictated by: Jaime Solano RRA Interpreted: Marisel Castillo MD on 01/25/2017 at 8:10 Brief History History of present illness per Dr. Gautam M.D. 01/22/2017 "Kayy King is a 66 y/o female with Coronary artery disease s/p LAD stent in 2008, CHF (most recent Echo on 12/17/15 w/EF of 55-60%, severely dilated atria ), atrial arrhythmias s/p AICD, diabetes and COPD on 3L chronic home O2 who presented to [facility] emergency department via EMS complaining of ongoing Dyspnea on exertion Duration was about 1 week as per patient. She states that her dyspnea on exertion was progressively getting worst and associated with a weight gain on about 10 lbs. She denies CP, cough, fever, vomiting, diarrhea. Her abdominal pain has persisted mildly since discharge and is controlled by pain medications. She decided to see her PCP Dr. Servin today regarding her dyspnea who told her that she looked very unwell and called an ambulance to bring her to the ED. She denies any sick contacts. She has been compliant with her furosemide as instructed and is watching the salt content in her food. The patient was admitted to [facility] on 01/10 - 01/14 for A-fib with RvR at which time she was also experiencing RUQ abdominal pain which was found to be caused by gallstones. There was plan to transfer to [facility] if cholecystectomy was indicated Case discussed with Dr Wells. Chest X ray consistent with heart failure and Lasix administered. Patient requiring more oxygen need compared to baseline. " Hospital Course Kayy King is a 66 y/o female with Coronary artery disease s/p LAD stent in 2008, CHF (most recent Echo on 12/17/15 w/EF of 55-60%, severely dilated atria ), atrial arrhythmias s/p AICD, diabetes and COPD on 3L chronic home O2 who presented to [facility] emergency department via EMS complaining of ongoing Dyspnea on exertion. Patient was aggressively diuresed through hospital stay, restarted home medications with good results and discharged to home with home health, new anticoagulation medication Elipuis and an increase in the dose of both her metoprolol and furosemide. 1. Acute on Chronic Hypoxic Respiratory Failure Secondary to Acute Congestive heart failure. Differential diagnosis includes Pulmonary embolism, COPD exacerbation - continued oxygen supplementation (target range 88-92% due to retention) - considerd Non invasive ventilation with BIPAP, never became necessary during admission - treated underlying cause (see below) 2. Acute on Chronic preserved EF Heart Failure Cause is unclear but suspect non compliance with medications and dietary indiscretion. No evidence of any infectious process causing exacerbation - diuretics with Lasix 40 mg IV bid, increased home dose of Lasix from 20 to 40 daily at discharge - daily weight and monitor fluids status, good urine output approximately 5.7 L during admission - CHF clinic referral on discharge - note patient is allergic to CALIXTO inhibitor, Losartan 50 mg daily. Restarted this medication with good effect - continued Spironolactone - Metoprolol 100 mg twice a day 3. Atrial fibrillation Chronic s/p ablation and CAD s/p LAD stent in 2008. Currently not on any anticoagulation - Insurance company did not cover Pradaxa - We will not start on warfarin secondary to transportation restrictions - monitor on telemetry - Remains tachycardic, metoprolol as above - Started on Eliquis, discharged before social work could provide answer regarding insurance coverage - Discharged with coupon for Eliquis for the next 30 days 4. Biliary colic (gallbladder attack) Concern for cholecystitis based on abdominal pain as well as ultrasound. However her symptoms improved. Initially surgery thought she may require transfer to [facility] for surgery. This is based her bariatric weight parameters being over threshold for anesthesia at [facility]. However her symptoms completely improved and labs normalize consistent with possible biliary colic. 4. Diabetes mellitus, type 2 Presumed controlled with recent A1c 6.3 - held Metformin while inpatient - correctional insulin algorithm used while inpatient 5. COPD exacerbation with Chronic Respiratory Failure Does appear in acute exacerbation without any sputum or cough changes from daily variation. Previous smoking history - oxygen dependent, 3 L home O2 - continue DuoNeb as needed - Prednisone 40 mg 5 day course with taper - Azithromycin 500 mg 5 day course completed 6. Hyperlipidemia. -Continued home statin 7. Hypothyroidism. Presumed stable - continued calm Levothyroxine 50 mcg daily 8. Depression. Presumed stable. - reportedly two prior suicide attempts in the past - continued home sertraline 9. Morbid Obesity BM! 44.6. Chronic. - Acetaminophen as needed for mild pain/fever/headache - Bowel regimen as needed - Antiemetic as needed Exam Vital Signs (Last) Date Time Temp Pulse Resp B/P Pulse Ox O2 Delivery O2 Flow Rate FiO2 01/27/17 08:51 Supplement Oxygen 01/27/17 07:49 77 18 95 2.50 01/27/17 07:41 36.4 121/62 Exam General: Morbidly obese female in no acute distress, well-developed, well- nourished, appropriately interactive. Sitting in bedside chair with nasal cannula in place HEENT: Normocephalic, atraumatic. Neck: Supple with full range of motion. Cardiovascular: Regular rate, irregularly irregular rhythm. No murmurs appreciated Pulmonary: Bilateral mild expiratory wheezes all lung wagner heard best and upper anterior lobes, improved. Improved air movement. Abdomen: Obese Soft nontender palpation 4 quadrants. Extremities: No clubbing, cyanosis, edema Skin: Normal temperature, turgor, and texture Neurological: Cranial nerves grossly intact. Psychiatric: Normal mood and affect. Alert and oriented to person, place, and time. Test 01/22/17 16:29 01/22/17 17:15 01/22/17 18:02 01/23/17 04:43 Prothrombin Time 11.5sec (8.1-12.5) Prothromb Time International Ratio 1.07ratio Hemoglobin A1c 6.3% (4.8-5.6) Thyroid Stimulating Hormone (TSH) 4.210uIU/mL (0.450-4.500) Hold Kerr Top Tube Received (Received) Hold Urine Received (Received) Urine Color Yellow (YELLOW) Urine Appearance Hazy (CLEAR,HAZY) Urine pH 6.0 (5.0-8.0) Urine Specific [place] 1.010 (1.003-1.035) Urine Protein Negativemg/dL (NEG,TRACE) Urine Glucose (UA) Negativemg/dL (NEGATIVE) Urine Ketones Negativemg/dL (NEGATIVE) Urine Occult Blood Negative (NEGATIVE) Urine Nitrite Negative (NEGATIVE) Urine Bilirubin Negative (NEGATIVE) Urine Urobilinogen Normalmg/dL (NORMAL) Urine Leukocyte Esterase Negative (NEGATIVE) Urine RBC 0-2/hpf (0-2) Urine WBC 0-5/hpf (0-5) Urine Epithelial Cells Moderate/hpf (NONE-MOD) Urine Crystals None seen (NONE SEEN) Urine Bacteria Few/hpf (NONE-FEW) Urine Hyaline Casts Occasional/lpf (NONE) Urine Granular Casts None seen (NONE SEEN) Urine Waxy Casts None seen (NONE SEEN) Urine Red Blood Cell Casts None seen (NONE SEEN) Urine White Blood Cell Casts None seen (NONE SEEN) Urine Mucus None seen (None Seen) Urine Trichomonas None seen (NONE SEEN) Urine Yeast None (NONE SEEN) Urinalysis Comment None Urine Culture Reflexed Not indicated Triglycerides Level 127mg/dL (0-149) Cholesterol Level 61mg/dL (100-199) LDL Cholesterol, Calculated 9.600mg/dL (0-99) VLDL Cholesterol 25.400mg/dL HDL Cholesterol 26mg/dL (>39) Cholesterol/HDL Ratio 2.35 (0.0-4.4) Test 01/23/17 20:50 01/25/17 04:12 01/27/17 04:10 Total Creatine Kinase 44U/L (21-215) Creatine Kinase MB 1.6ng/mL (0.0-5.3) Creatine Kinase MB % % (0.0-5.0) Troponin T 0.010ug/L (0.0-0.011) Pro-B-Type Natriuretic Peptide 3980pg/mL (0-287) White Blood Count 12.4th/mm3 (3.8-10.1) Red Blood Count 4.15mil/mm3 (3.90-5.20) Hemoglobin 13.7g/dL (12.0-15.6) Hematocrit 42.4% (35.0-46.0) Mean Corpuscular Volume 102.2fL (81-100) Mean Corpuscular Hemoglobin 33.0pg (27.0-35.0) Mean Corpuscular Hemoglobin Concent 32.3% (32.0-37.0) Red Cell Distribution Width 14.2% (12.3-15.4) Platelet Count 275bil/L (150-400) Neutrophils (%) (Auto) 68.9% (40-74) Lymphocytes (%) (Auto) 23.7% (14-46) Monocytes (%) (Auto) 6.2% (4-12) Eosinophils (%) (Auto) 0.3% (0-5) Basophils (%) (Auto) 0.5% (0-3) Sodium Level 137mEq/L (134-144) Potassium Level 4.6mEq/L (3.5-5.2) Chloride Level 95mEq/L (97-108) Carbon Dioxide Level 26mmol/L (18-29) Blood Urea Nitrogen 36mg/dL (8-27) Creatinine 0.89mg/dL (0.57-1.00) Estimat Glomerular Filtration Rate 91mL/min (>59) Glucose Level 148mg/dL (60-99) Calcium Level 9.4mg/dL (8.5-10.1) Magnesium Level 2.1mg/dL (1.6-2.6) Total Bilirubin 0.5mg/dL (0.0-1.2) Aspartate Amino Transf (AST/SGOT) 20U/L (0-50) Alanine Aminotransferase (ALT/SGPT) 32U/L (0-32) Alkaline Phosphatase 35U/L (25-165) Total Protein 6.7g/dL (6.4-8.4) Albumin 4.1g/dL (3.4-5.0) Procalcitonin 0.06ng/mL (0.00-0.08) Microbiology Results Respiratory viral PCR negative Discharge Medications Discharge Medications Apixaban (Eliquis) 5 Mg Tablet 5 MG PO BID Prescribed by: DANIEL PENNY DO Aspirin (Aspirin) 81 Mg Tablet 81 MG PO QAM (Reported) Atorvastatin (Lipitor) 40 Mg Tablet 40 MG PO HS (Reported) Furosemide (Furosemide) 20 Mg Tab 40 MG PO DAILY Prescribed by: DANIEL PENNY DO Ipratropium [place] (Atrovent HFA) 200 Puff/12.9 Gm Inhaler 2 PUFFS INHALATION QID (Reported) Isosorbide MN ER (Isosorbide MN ER) 30 Mg Tab.er.24h 30 MG PO QAM (Reported) Levothyroxine (Levothyroxine) 50 Mcg Tablet 50 MCG PO QAM (Reported) Losartan Potassium (Losartan Potassium) 50 Mg Tablet 50 MG PO QAM (Reported) Metformin (Glucophage) 1,000 Mg Tablet 1,000 MG PO BIDWM (Reported) Metoprolol Tartrate (Metoprolol Tartrate) 100 Mg Tablet 100 MG PO BID Prescribed by: DANIEL PENNY DO Multivit with Calcium,Iron,Min (Therapeutic M) 1 Each Tablet 1 EACH PO HS ( Reported) Prednisone (Deltasone) 20 Mg Tablet 10 MG PO DAILYWM Prescribed by: DANIEL PENNY DO Sertraline HCl (Sertraline) 50 Mg Tablet 50 MG PO DAILY Prescribed by: SAVANNAH AMRANDO DO Spironolactone (Spironolactone) 25 Mg Tablet 12.5 MG PO QAM (Reported) As needed Albuterol Neb Soln (Albuterol Neb Soln) 0.63 Mg/3 Ml Vial.neb 3 ML INHALATION QID PRN PRN For Shortness of Breath (Reported) Albuterol Sulfate (Ventolin HFA Inhaler) 200 Puff/18 Gm Inhaler 2 PUFFS INHALATION QID PRN PRN For Shortness of Breath (Reported) Ibuprofen (Ibuprofen) 200 Mg Capsule 400 MG PO DAILY PRN PRN For Pain (Reported ) Loperamide (Loperamide) 2 Mg Tablet 2 MG PO Q4H PRN PRN For Diarrhea or Loose Stool (Reported) Nitroglycerin SL (Nitrostat) 0.4 Mg Tab.subl 0.4 MG SL Q5MIN PRN PRN For Chest Pain (Reported) Additional med instructions New Prescriptions: I am giving you a prescription for a medication called Apixaban (Eliquis). Please take 5 mg of this medication by mouth both in the morning and at night. I have given you a paper prescription for this which you may fill at any pharmacy, please present this paper prescription with your coupon which was given to you in the hospital and this should cover this medication for one month. I am increasing your dose of furosemide (Lasix) from 20 mg a day to 40 mg a day. Please take 40 mg of this medication by mouth daily. I am giving you a paper prescription for this medication at discharge I am also increasing your metoprolol dose to 100 mg by mouth twice a day. Please take 100 mg of this medication by mouth in the morning and at the evening. I am giving you a paper prescription for this medication at discharge I am also giving you a prescription for medication called prednisone, you were taking this steroid while in the hospital and you need to taper down this dose. You are to take 20 mg (two 10 mg tablets) of this medication by mouth tomorrow 01/28/2017, you are to take another 20 mg of this medication (two 10 mg tablets) by mouth on Finally on 01/29/2017 you are to take one 10 mg tablet of this medication - thus completing your prednisone taper I have continued all of your other medications, you may want to also follow-up with your chemical research worker regarding your inhalers and the progression of your COPD. Followup Plan Disposition: Discharged to home in stable condition Follow-up plan Please follow with your primary care provider and your public interviewer regarding this hospital admission Please follow up with the CHF at their next available appointment Discharge Diet: Low fat, Low Sodium, Heart Healthy, Diabetic Discharge Activity: Limited until seen by PCP Patient Instructions Please follow up with Dr. Servin regarding this hospital admission in the next week Please follow-up with Dr. Tamez, your public interviewer for ongoing management Follow-up Provider: David Servin MD Follow-up with PCP in: 1 week Provider: Familia Tamez MD Follow-up in: 2 weeks CHF Clinic: 1 week Time spent Greater than 30 minutes was spent in preparation of discharge with greater than 50% of that time dedicated to patient counseling and coordination of care. . Attending Statement The patient was seen and examined together with Dr. Penny on 01/27/2017 and I agree with the history, exam and plan as outlined in the note above. . copies to: David Servin MD; Familia Tamez MD, GILES A DO Jan 27, 2017 12:07 Poli Jones MD Jan 27, 2017 16:27
[2017-01-27] MEDS ORDERED: PRED-508 PO (12:08)
--- NOTE | 2017-01-27 12:21 | PCM.DIMED ---
DANIEL PENNY DO 01/27/17 1220: Discharge Instructions Date of Service Jan 27, 2017 Dates of Hospitalization Jan 22, 2017 at 20:55 Discharge Diagnosis Discharge Diagnosis . 1. Acute on Chronic Hypoxic Respiratory Failure 2. Acute on Chronic preserved EF Heart Failure 3. Atrial fibrillation Chronic 4. Biliary colic (gallbladder attack) 4. Diabetes mellitus, type 2 5. COPD exacerbation with Chronic Respiratory Failure 6. Hyperlipidemia 7. Hypothyroidism 8. Depression Medication Instructions New Prescriptions: I am giving you a prescription for a medication called Apixaban (Eliquis). Please take 5 mg of this medication by mouth both in the morning and at night. I have given you a paper prescription for this which you may fill at any pharmacy, please present this paper prescription with your coupon which was given to you in the hospital and this should cover this medication for one month. I am increasing your dose of furosemide (Lasix) from 20 mg a day to 40 mg a day. Please take 40 mg of this medication by mouth daily. I am giving you a paper prescription for this medication at discharge I am also increasing your metoprolol dose to 100 mg by mouth twice a day. Please take 100 mg of this medication by mouth in the morning and at the evening. I am giving you a paper prescription for this medication at discharge I am also giving you a prescription for medication called prednisone, you were taking this steroid while in the hospital and you need to taper down this dose. You are to take 20 mg (two 10 mg tablets) of this medication by mouth tomorrow 01/28/2017, you are to take another 20 mg of this medication (two 10 mg tablets) by mouth on Finally on 01/29/2017 you are to take one 10 mg tablet of this medication - thus completing your prednisone taper I have continued all of your other medications, you may want to also follow-up with your facility maintenance worker regarding your inhalers and the progression of your COPD. Diet Low fat, Low Sodium, Heart Healthy, Diabetic Activity Limited until seen by PCP Call your provider Fever or Chills, Shortness of breath, Bleeding, Chest pain, Vomitting, Excessive diarrhea, Weakness (unilateral) Patient Instructions Please follow up with Dr. Servin regarding this hospital admission in the next week Please follow-up with Dr. Tamez, your manual equipment mechanic for ongoing management Follow-up plan Please follow with your primary care provider and your manual equipment mechanic regarding this hospital admission Please follow up with the CHF at their next available appointment Resume home health Follow-up Provider: David Servin MD Follow-up with PCP in: 1 week Provider: Familia Tamez MD Follow-up in: 2 weeks CHF Clinic: 1 week Poli Jones MD 01/27/17 1630: Discharge Instructions Attending's Statement The patient was seen and examined together with Dr. Penny on 01/27/2017 and I agree with the history, exam and plan as outlined in the note above. . DANIEL PENNY DO Jan 27, 2017 12:20 Poli Jones MD Jan 27, 2017 16:30
--- NOTE | 2017-01-27 14:10 | NUR ---
Discharge Pt discharged home today at 14:10. Pt off floor via wheelchair with all of her belongings in the company of the nurse and her family to private vehicle. Pt was sent home with prescriptions, follow up instructions, and education materials on meds and heart healthy diet. Medication compliance was reiterated and pt verbalized understanding.
== END 2017-01-27 14:07 | disposition home or self-care (01) | DRG 189 ==
LOC: SED 16:59 → PCC 20:55
PROVIDERS: ADMIT Hospitalist; ATTEND Hospitalist
DX: J96.21 Acute and chronic respiratory failure with hypoxia (principal); I50.33 Acute on chronic diastolic (congestive) heart failure; J44.1 Chronic obstructive pulmonary disease with (acute) exacerbation; Z68.41 Body mass index [BMI] 40.0-44.9, adult; Z95.810 Presence of automatic (implantable) cardiac defibrillator; Z79.82 Long term (current) use of aspirin; Z79.84 Long term (current) use of oral hypoglycemic drugs; Z95.5 Presence of coronary angioplasty implant and graft; Z91.5 Personal history of self-harm; Z87.891 Personal history of nicotine dependence; Z51.5 Encounter for palliative care; Z66 Do not resuscitate; Z91.19 Patient's noncompliance with other medical treatment and regimen; I48.2 Chronic atrial fibrillation; E11.9 Type 2 diabetes mellitus without complications; E78.5 Hyperlipidemia, unspecified; E03.9 Hypothyroidism, unspecified; F32.9 Major depressive disorder, single episode, unspecified; E66.01 Morbid (severe) obesity due to excess calories; K80.50 Calculus of bile duct without cholangitis or cholecystitis without obstruction